=== PATIENT | male | born 1955 | race Caucasian/White ===

== ENCOUNTER 2024-12-06 09:35 | Observation (INO) | payer MEDICARE ==
[2024-12-06 10:06] LABS: Basophils # (A) 0.04 10*3/uL (0.00-0.10); Basophils % (A) 0.4 %; Eosinophils # (A) 0.01 10*3/uL (0.04-0.35); Eosinophils % (A) 0.1 %; HCT 42.8 % (39.6-50.0); HGB 14.2 g/dL (13.0-17.0); Lymphocytes # (A) 0.99 10*3/uL (0.90-5.00); Lymphocytes % (A) 8.7 %; MCHC 33.2 g/dL (32.0-37.0); MCV 87.5 fL (80.0-97.0); Mean Platelet Volume 8.5 fL (9.5-12.2); Monocytes # (A) 0.49 10*3/uL (0.20-1.00); Monocytes % (A) 4.3 %; Neutrophils # (A) 9.67 10*3/uL (1.80-7.70); Neutrophils % (A) 85.4 %; Platelet Count 298 10*3/uL (140-440); RBC 4.89 10*6/uL (4.40-5.60); RDW 13.2 % (11.5-14.5); WBC 11.33 10*3/uL (4.50-10.00)
[2024-12-06 10:23] LABS: ALT 31 U/L (4-49); AST 26 U/L (17-59); African American GFR (CKD) >90 (>60 ml/min/1.73 sqM); Albumin 4.7 g/dL (3.5-5.0); Alkaline Phosphatase 93 U/L (38-126); Anion Gap 10 mmol/L; Blood Urea Nitrogen 19 mg/dL (9-20); Calcium 8.8 mg/dL (8.4-10.2); Carbon Dioxide 28 mmol/L (22-30); Chloride 103 mmol/L (98-107); Glucose 294 mg/dL (74-99); Non-African American GFR(CKD) >90 (>60 ml/min/1.73 sqM); Potassium 4.4 mmol/L (3.5-5.1); Sodium 141 mmol/L (137-145); Total Bilirubin 0.7 mg/dL (0.2-1.3); Total Protein 7.7 g/dL (6.3-8.2)
--- NOTE | 2024-12-06 10:28 | XR ---
EXAMINATION TYPE: XR chest 1V portable DATE OF EXAM: 12/06/2024 10:15 AM COMPARISON: None. CLINICAL INDICATION: Male, 69 years old with history of cough, congestion, dyspnea, TECHNIQUE: XR chest 1V portable view(s) obtained. FINDINGS: The heart size is normal. The pulmonary vasculature is normal. Mild left lower lobe infiltrate is present. Correlate for atelectasis or pneumonia . IMPRESSION: 1. Mild left lower lobe infiltrate. Correlate for atelectasis or pneumonia. [facility], , 12/06/2024 10:26 AM
[2024-12-06 10:32] LABS: NT-Pro-B-Type Natriuretic Pept 379 pg/mL
[2024-12-06] MEDS: methylPREDNISolone SOD SUCCI 125 MG/2 ML VIAL IV STA (10:39)
[2024-12-06 10:40] LABS: INR 0.9 (<1.2); Partial Thromboplastin Time 24.5 sec (22.0-30.0); Prothrombin Time 10.4 sec (10.0-12.5)
[2024-12-06 10:47] LABS: Influenza A Not Detected (Not Detectd); Influenza B Not Detected (Not Detectd); RSV Not Detected (Not Detectd)
[2024-12-06] MEDS: hydrALAZINE HCL 20 MG/ML 1 ML VIAL IVP STA ×2 (11:03→12:37)
[2024-12-06] MEDS: MORPHINE SULFATE 4 MG/ML SYRINGE IVP STA (11:06)
[2024-12-06] MEDS: LACTATED RINGERS 1,000 ML IV ONE ×2 (11:06→12:32)
[2024-12-06] MEDS: LIDOCAINE 4% PATCH TOPICAL STA (11:09)
--- NOTE | 2024-12-06 11:14 | US ---
EXAMINATION TYPE: US venous doppler duplex LE BI DATE OF EXAM: 12/06/2024 11:02 AM COMPARISON: NONE CLINICAL INDICATION: Male, 69 years old with history of dyspnea. recent long distance travel. eval fo r PE; No hx of DVT. Patient does not take blood thinners. Recent [address] TECHNIQUE: The lower extremity deep venous system is examined utilizing real time linear array sonog juaquin with graded compression, color doppler sonography, and spectral doppler. SIDE PERFORMED: Bilateral FINDINGS: VESSELS IMAGED: Common Femoral Vein Deep Femoral Vein Greater Saphenous Vein * Femoral Vein Popliteal Vein Small Saphenous Vein * Proximal Calf Veins (* superficial vessels) Right Leg: No evidence of DVT. Peroneal veins were not visualized. Left Leg: No evidence of DVT. Peroneal veins were not visualized. IMPRESSION: No evidence for deep vein thrombosis. [facility], , 12/06/2024 11:11 AM
[2024-12-06] MEDS: IPRATROPIUM-ALBUTEROL 3 ML NEB INHALATION STA (11:38)
[2024-12-06] MEDS ORDERED: PNEUMONIA PROTOCOL UTILIZED 1 EACH MISC PO PRN (12:11)
--- NOTE | 2024-12-06 12:11 | CT ---
EXAMINATION TYPE: CT chest angio for PE DATE OF EXAM: 12/06/2024 11:39 AM COMPARISON: None CLINICAL INDICATION: Male, 69 years old with history of dyspnea. recent long distance travel. eval fo r PE; CHEST PAIN TECHNIQUE/CONTRAST: CTA scan of the thorax is performed with IV Contrast, patient injected with 80 mL of Isovue 370, MIP images are created and reviewed these are created on a separate workstation.. CT DLP: 491.7 mGycm, Automated exposure control for dose reduction was used. FINDINGS: Lungs/Pleura: No evidence of focal consolidation, pleural effusion or pneumothorax. 6 mm right lower lobe pulmonary nodule series 406 image 107. Regular lobe calcified granuloma. Moderate emphysema changes. Intralobular septal thickening.r Airway: Large airways are patent. Heart: Size within normal limits. No significant coronary artery calcifications. Vasculature: There is no evidence for a filling defect within the pulmonary vasculature to suggest ac [place] pulmonary embolism. The pulmonary artery is of normal size. Mediastinum: No gross evidence of adenopathy. Right pulmonary hilum lymph moderate atherosclerosis of the arterial vasculature. Node measuring up to 12 mm in short axis series 4 image 87. Musculoskeletal: Mild disc degeneration changes are present throughout the thoracolumbar spine second prosper to osteophyte formation and facet joint arthropathy. Soft Tissues/lymph nodes: Unremarkable. Lower neck: No significant findings. Upper Abdomen: No significant findings. IMPRESSION: 1. No evidence of pulmonary embolism. 2. 6 mm right lower lobe pulmonary nodule. Short-term follow-up in 6-12 months recommended. Follow up recommendations for incidental pulmonary nodules, if there are any, are per [employer] [employer] or [place] [employer]. https://radiopaedia.org/articles/avphkggvri-[email or web address]?lang=us [facility], , 12/06/2024 12:09 PM
[2024-12-06] MEDS: LACTATED RINGERS 1,000 ML IV SCH (12:33)
[2024-12-06] MEDS: AZITHROMYCIN 500 MG in SODIUM CHLORIDE 0.9% 250 ML IVPB STA (12:40)
--- NOTE | 2024-12-06 12:48 | ED ---
General Adult HPI - General Chief complaint: Shortness of Breath Stated complaint: ISHA Time Seen by Provider: 12/06/24 09:45 Source: patient, RN notes reviewed, old records reviewed Mode of arrival: ambulatory - History of Present Illness Initial comments: Patient is a 69-year-old male who presents emergency department complaining of shortness of breath. Has been ongoing for the last 2 weeks. Diagnosed with pneumonia last week and is currently taking Augmentin outpatient. Has also been taking steroids. Has a history of COPD on as needed oxygen at home. Has been needing to use it more often. Patient does have multiple recent long distance travels, recently returning from [place] but also was in [place] earlier this year. Needed BiPAP admission at that time. He denies any chest pain but does endorse cough productive of whitish to yellow sputum. States he did have a significantly swollen right lower extremity which has since improved. Had some mild left-sided swelling as well at that time. No history of CHF. Denies nausea vomiting diarrhea. Does endorse intermittent muscle spasming when his coughing gets bad. Presents for further evaluation at this time. Is not on blood thinners. - Related Data Home Medications Medication Instructions Recorded Confirmed Albuterol Nebulized [Ventolin 1.25 mg INHALATION RT-BID 12/06/24 12/06/24 Nebulized (Accuneb)] Amoxic-Pot Clav 875-125Mg 1 tab PO BID 12/06/24 12/06/24 [Augmentin 875-125] Budesonide/Formoterol Fumarate 2 puff INHALATION RT-BID 12/06/24 12/06/24 [Symbicort 160-4.5 Mcg Inhaler] Ipratropium Nebulized [Atrovent 0.5 mg INHALATION RT-BID 12/06/24 12/06/24 Nebulized 0.2 MG/ML] Levothyroxine Sodium [Synthroid] 175 mcg PO DAILY 12/06/24 12/06/24 predniSONE [Deltasone] 20 mg PO BID 12/06/24 12/06/24 Allergies Allergy/AdvReac Type Severity Reaction Status Date / Time No Known Allergies Allergy Verified 12/06/24 10:48 Review of Systems ROS Statement: Those systems with pertinent positive or pertinent negative responses have been documented in the HPI. Review of Systems: CONST: Denies fever EYES: Denies blurry vision ENT: Endorses nasal congestion C/V: Denies Chest pain RESP: Endorses shortness of breath, cough, congestion GI: Denies abdominal pain : Denies dysuria SKIN: Denies rash. MSK: Denies joint pain. NEURO: Denies headache ROS Other: All systems not noted in ROS Statement are negative. Past Medical History Past Medical History: Thyroid Disorder History of Any Multi-Drug Resistant Organisms: None Reported Past Surgical History: Orthopedic Surgery Past Psychological History: No Psychological Hx Reported Smoking Status: Never smoker Past Alcohol Use History: Rare Past Drug Use History: Marijuana General Exam - General Exam Comments Initial Comments: General: Appears in no acute distress. HEAD: Normal with no signs of head trauma. EYES: PERRLA, EOMI, conjunctiva normal, no discharge. Pupils are 3 mm and equal bilaterally. ENT: Hearing grossly intact, normal oropharynx. RESPIRATORY: Increased work of breathing with bilateral end expiratory wheezing. Mildly hypoxic, saturating anywhere from 87% on room air to 91%. Apparently this is typical as he does have as needed oxygen at home. C/V: Regular rate and rhythm. S1 and S2 auscultated, lower extremity edema, right worse than left., peripheral pulses 2+ and intact throughout ABD: Abd is soft, nontender, nondistended EXT: Normal range of motion, no obvious deformity SKIN: No rashes or lesions observed on exposed skin. NEURO: Alert and oriented x 4. Course Vital Signs 12/06/24 12/06/24 12/06/24 09:37 10:36 11:05 Temperature 97.7 F Pulse Rate 94 93 81 Respiratory 18 26 H 20 Rate Blood Pressure 205/88 187/94 173/94 O2 Sat by Pulse 87 L 95 91 L Oximetry 12/06/24 12/06/24 12/06/24 11:38 11:46 11:47 Temperature Pulse Rate 77 76 76 Respiratory Rate Blood Pressure O2 Sat by Pulse Oximetry 12/06/24 12/06/24 11:56 12:00 Temperature Pulse Rate 81 93 Respiratory 20 Rate Blood Pressure 193/103 O2 Sat by Pulse 94 L Oximetry Procedures - [place] Protocol (Time Out) Nurse: Ivan Melissa Medical Decision Making - Medical Decision Making Was pt. sent in by a medical professional or institution (, PA, BAR POINTER, urgent care, hospital, or intermediate...) When possible be specific @ -No Did you speak to anyone other than the patient for history (EMS, parent, family, police, friend...)? What history was obtained from this source @ -No Did you review nursing and triage notes (agree or disagree)? Why? @ -I reviewed and agree with nursing and triage notes Were old charts reviewed (outside hosp., previous admission, EMS record, old EKG, old radiological studies, urgent care reports/EKG's, intermediate records)? Report findings @ -No old charts were reviewed Differential Diagnosis (chest pain, altered mental status, abdominal pain women, abdominal pain men, vaginal bleeding, weakness, fever, dyspnea, syncope, headache, dizziness, GI bleed, back pain, seizure, CVA, palpatations, mental health, musculoskeletal)? @ -Differential Dyspnea: Coronary syndrome, arrhythmia, tamponade, asthma, COPD, pulmonary embolism, pneumonia, pneumothorax, pulmonary effusion, anaphylaxis, diabetic ketoacidosis, flailed chest, pulmonary contusion, diaphragmatic rupture, anemia, neuromuscular, this is not meant to be an all-inclusive list. EKG interpreted by me (3pts min.). @ -As above X-rays interpreted by me (1pt min.). @ -Chest x-ray shows left-sided pneumonia. CT interpreted by me (1pt min.). @ -CT angiogram chest abdomen pelvis negative for any obvious pulmonary embolism. Patient does have a 6 mm right lower lobe pulmonary nodule. U/S interpreted by me (1pt. min.). @ -Ultrasound negative for DVT What testing was considered but not performed or refused? (CT, X-rays, U/S, labs)? Why? @ -None What meds were considered but not given or refused? Why? @ -None Did you discuss the management of the patient with other professionals (rosalina haney i.e. , PA, BAR POINTER, lab, RT, psych nurse, social studies teacher, crop farmers, teacher, conservation officer, employment evaluator/case manager)? Give summary @ -Discussed with Dr. Guzman who accepted the admission. Was smoking cessation discussed for >3mins.? @ -No Was critical care preformed (if so, how long)? @ -Yes, 31 minutes Were there social determinants of health that impacted care today? How? (Homelessness, low income, unemployed, alcoholism, drug addiction, transportation, low edu. Level, literacy, decrease access to med. care, long-term, rehab)? @ -No Was there de-escalation of care discussed even if they declined (Discuss DNR or withdrawal of care, Hospice)? DNR status @ -No What co-morbidities impacted this encounter? (DM, HTN, Smoking, COPD, CAD, Cancer, CVA, ARF, Chemo, Hep., AIDS, mental health diagnosis, sleep apnea, morbid obesity)? @ -COPD, recent travel Was patient admitted / discharged? Hospital course, mention meds given and route, prescriptions, significant lab abnormalities, going to OR and other pertinent info. @ -Patient presents emergency department with multiple complaints. Seems to be likely URI symptoms with COPD exacerbation but cannot rule out other etiology as he did have the right lower extremity swelling and recent TRAVEL. We will rule out PE and DVT as well. Patient will be given IV steroids, treatments, and we will obtain general workup. He was in agreement this plan. He is intermittently on oxygen at home but is currently requiring 3 to 4 L. He is hypertensive but has some chest wall discomfort and is given some morphine. Patient had failed outpatient management as he has been on antibiotics and steroids for multiple days. EKG shows no signs of acute ischemia. Chest x-ray shows left-sided pneumonia. CT angiogram of the chest negative for PE but does show a right sided pulmonary nodule. Ultrasound DVT negative for DVT. Labs remarkable for mild leukocytosis of 11. Lactic acid 2.8 likely secondary to increased work of breathing and dehydration. Troponin is undetectable. BNP within normal limits. D-dimer within normal limits. At this time, I updated the patient. Breathing has improved. He he became a little more hypertensive again and will be given IV hydralazine at this time. He was in agreement this plan. He will be admitted on IV antibiotics. Started on 2 L fluid bolus with maintenance fluids. He was in agreement this plan. Pulmonology consulted. I updated him on the findings of the pulmonary nodule and he expresses understanding that he needs follow-up. I spoke with the admitting provider, Dr. Meneses who accepted the admission. Undiagnosed new problem with uncertain prognosis? @ -No Drug Therapy requiring intensive monitoring for toxicity (Heparin, Nitro, Insulin, Cardizem)? @ -No Were any procedures done? @ -No Diagnosis/symptom? @ -COPD, pneumonia, acute on chronic hypoxic respiratory failure, pulmonary nodule Acute, or Chronic, or Acute on Chronic? @ -Acute Uncomplicated (without systemic symptoms) or Complicated (systemic symptoms)? @ -Complicated Side effects of treatment? @ -No Exacerbation, Progression, or Severe Exacerbation? @ -No Poses a threat to life or bodily function? How? (Chest pain, USA, OR, pneumonia, PE, COPD, DKA, ARF, appy, cholecystitis, CVA, Diverticulitis, Homicidal, Castillo icidal, threat to staff... and all critical care pts) @ -Yes - Lab Data Result diagrams: 12/06/24 09:55 12/06/24 09:55 Lab Results 12/06/24 12/06/24 12/06/24 Range/Units 09:55 09:55 09:55 WBC 11.33 H (4.50-10.00) 10*3/uL RBC 4.89 (4.40-5.60) 10*6/uL Hgb 14.2 (13.0-17.0) g/dL Hct 42.8 (39.6-50.0) % MCV 87.5 (80.0-97.0) fL MCH 29.0 (27.0-32.0) pg MCHC 33.2 (32.0-37.0) g/dL Plt Count 298 (140-440) 10*3/uL MPV 8.5 L (9.5-12.2) fL Immature Gran % (Auto) 1.1 % Neutrophils % 85.4 % Lymphocytes % 8.7 % Monocytes % 4.3 % Eosinophils % 0.1 % Basophils % 0.4 % Immature Gran # 0.13 H (0.00-0.04) 10*3/uL Neutrophils # 9.67 H (1.80-7.70) 10*3/uL Lymphocytes # 0.99 (0.90-5.00) 10*3/uL Monocytes # 0.49 (0.20-1.00) 10*3/uL Eosinophils # 0.01 L (0.04-0.35) 10*3/uL Basophils # 0.04 (0.00-0.10) 10*3/uL PT 10.4 (10.0-12.5) sec INR 0.9 (<1.2) APTT 24.5 (22.0-30.0) sec D-Dimer 0.34 (<0.60) mg/L FEU Sodium 141 (137-145) mmol/L Potassium 4.4 (3.5-5.1) mmol/L Chloride 103 (98-107) mmol/L Carbon Dioxide 28 (22-30) mmol/L Anion Gap 10 mmol/L BUN 19 (9-20) mg/dL Creatinine 0.67 (0.66-1.25) mg/dL Est GFR (CKD-EPI)AfAm >90 (>60 ml/min/1.73 sqM) Est GFR (CKD-EPI)NonAf >90 (>60 ml/min/1.73 sqM) Glucose 294 H (74-99) mg/dL Lactic Ac Sepsis Rflx Plasma Lactic Acid Bry (0.7-2.0) mmol/L Calcium 8.8 (8.4-10.2) mg/dL Magnesium 2.0 (1.6-2.3) mg/dL Total Bilirubin 0.7 (0.2-1.3) mg/dL AST 26 (17-59) U/L ALT 31 (4-49) U/L Alkaline Phosphatase 93 (38-126) U/L Troponin I (0.000-0.034) ng/mL NT-Pro-B Natriuret Pep 379 pg/mL Total Protein 7.7 (6.3-8.2) g/dL Albumin 4.7 (3.5-5.0) g/dL Influenza Type A (PCR) (Not Detectd) Influenza Type B (PCR) (Not Detectd) RSV (PCR) (Not Detectd) SARS-CoV-2 (PCR) (Not Detectd) 12/06/24 12/06/24 12/06/24 Range/Units 09:55 09:55 09:55 WBC (4.50-10.00) 10*3/uL RBC (4.40-5.60) 10*6/uL Hgb (13.0-17.0) g/dL Hct (39.6-50.0) % MCV (80.0-97.0) fL MCH (27.0-32.0) pg MCHC (32.0-37.0) g/dL Plt Count (140-440) 10*3/uL MPV (9.5-12.2) fL Immature Gran % (Auto) % Neutrophils % % Lymphocytes % % Monocytes % % Eosinophils % % Basophils % % Immature Gran # (0.00-0.04) 10*3/uL Neutrophils # (1.80-7.70) 10*3/uL Lymphocytes # (0.90-5.00) 10*3/uL Monocytes # (0.20-1.00) 10*3/uL Eosinophils # (0.04-0.35) 10*3/uL Basophils # (0.00-0.10) 10*3/uL PT (10.0-12.5) sec INR (<1.2) APTT (22.0-30.0) sec D-Dimer (<0.60) mg/L FEU Sodium (137-145) mmol/L Potassium (3.5-5.1) mmol/L Chloride (98-107) mmol/L Carbon Dioxide (22-30) mmol/L Anion Gap mmol/L BUN (9-20) mg/dL Creatinine (0.66-1.25) mg/dL Est GFR (CKD-EPI)AfAm (>60 ml/min/1.73 sqM) Est GFR (CKD-EPI)NonAf (>60 ml/min/1.73 sqM) Glucose (74-99) mg/dL Lactic Ac Sepsis Rflx Plasma Lactic Acid Bry 2.8 H* (0.7-2.0) mmol/L Calcium (8.4-10.2) mg/dL Magnesium (1.6-2.3) mg/dL Total Bilirubin (0.2-1.3) mg/dL AST (17-59) U/L ALT (4-49) U/L Alkaline Phosphatase (38-126) U/L Troponin I <0.012 (0.000-0.034) ng/mL NT-Pro-B Natriuret Pep pg/mL Total Protein (6.3-8.2) g/dL Albumin (3.5-5.0) g/dL Influenza Type A (PCR) Not Detected (Not Detectd) Influenza Type B (PCR) Not Detected (Not Detectd) RSV (PCR) Not Detected (Not Detectd) SARS-CoV-2 (PCR) Not Detected (Not Detectd) 12/06/24 Range/Units 10:25 WBC (4.50-10.00) 10*3/uL RBC (4.40-5.60) 10*6/uL Hgb (13.0-17.0) g/dL Hct (39.6-50.0) % MCV (80.0-97.0) fL MCH (27.0-32.0) pg MCHC (32.0-37.0) g/dL Plt Count (140-440) 10*3/uL MPV (9.5-12.2) fL Immature Gran % (Auto) % Neutrophils % % Lymphocytes % % Monocytes % % Eosinophils % % Basophils % % Immature Gran # (0.00-0.04) 10*3/uL Neutrophils # (1.80-7.70) 10*3/uL Lymphocytes # (0.90-5.00) 10*3/uL Monocytes # (0.20-1.00) 10*3/uL Eosinophils # (0.04-0.35) 10*3/uL Basophils # (0.00-0.10) 10*3/uL PT (10.0-12.5) sec INR (<1.2) APTT (22.0-30.0) sec D-Dimer (<0.60) mg/L FEU Sodium (137-145) mmol/L Potassium (3.5-5.1) mmol/L Chloride (98-107) mmol/L Carbon Dioxide (22-30) mmol/L Anion Gap mmol/L BUN (9-20) mg/dL Creatinine (0.66-1.25) mg/dL Est GFR (CKD-EPI)AfAm (>60 ml/min/1.73 sqM) Est GFR (CKD-EPI)NonAf (>60 ml/min/1.73 sqM) Glucose (74-99) mg/dL Lactic Ac Sepsis Rflx Y Plasma Lactic Acid Bry (0.7-2.0) mmol/L Calcium (8.4-10.2) mg/dL Magnesium (1.6-2.3) mg/dL Total Bilirubin (0.2-1.3) mg/dL AST (17-59) U/L ALT (4-49) U/L Alkaline Phosphatase (38-126) U/L Troponin I (0.000-0.034) ng/mL NT-Pro-B Natriuret Pep pg/mL Total Protein (6.3-8.2) g/dL Albumin (3.5-5.0) g/dL Influenza Type A (PCR) (Not Detectd) Influenza Type B (PCR) (Not Detectd) RSV (PCR) (Not Detectd) SARS-CoV-2 (PCR) (Not Detectd) - EKG Data -: EKG Interpreted by Me EKG Comments: 12-lead Electrocardiogram Interpretation Note EKG was reviewed and interpreted by myself. 12-lead ECG performed at 0954 is interpreted by me as revealing normal sinus rhythm at a rate of 85 beats per minute. Lewis is normal. SD interval is 141 ms, QRS durations 102 ms, QTc is 426 ms.. There were no ST or T wave abnormalities to suggest myocardial ischemia or injury. R wave progression across the precordium was satisfactory. By my interpretation this EKG is non-diagnostic for acute ischemia. Critical Care Time Critical Care Time: Yes Total Critical Care Time: 31 Disposition Clinical Impression: COPD (chronic obstructive pulmonary disease), Acute on chronic hypoxic respiratory failure, Pneumonia Disposition: ADMITTED IP TO THIS HOSP Condition: Stable Referrals: None,Stated [Primary Care Provider] - 1-2 days Time of Disposition: 12:45
[2024-12-06] MEDS ORDERED: ONDANSETRON 4 MG/2 ML VIAL IVP PRN (13:01)
[2024-12-06] MEDS ORDERED: ACETAMINOPHEN TAB 325 MG TAB PO PRN (13:01)
[2024-12-06] MEDS ORDERED: IPRATROPIUM-ALBUTEROL 3 ML NEB INHALATION PRN (13:01)
[2024-12-06] MEDS ORDERED: NALOXONE 0.4 MG/ML 1 ML VIAL IV PRN (13:01)
[2024-12-06 13:51] LABS: Appearance,Urine Clear (Clear); Bilirubin,Urine Negative (Negative); Blood,Urine Negative (Negative); Color,Urine Light Yellow; Glucose,Urine (UA) 2+ (Negative); Ketones,Urine Negative (Negative); Leukocyte Esterase,Urine Negative (Negative); Mucus,Urine Rare /hpf; Nitrite,Urine Negative (Negative); PH, Urine 6.5 (5.0-8.0); Protein,Urine 1+ (Negative); RBC,Urine <1 /hpf (0-5); Specific Gravity,Urine 1.038 (1.001-1.035); Urobilinogen,Urine <2.0 mg/dL (<2.0); WBC,Urine <1 /hpf (0-5)
[2024-12-06] MEDS ORDERED: DEXTROSE 50% SYRINGE 50 ML IVP PRN ×2 (14:08)
--- NOTE | 2024-12-06 14:21 | P.HPIM ---
History of Present Illness H&P Date: 12/06/24 History of Presenting Illness: Patient is a very pleasant 69-year-old male with a past medical history of hypothyroidism and COPD. He reports previously on home oxygen after RSV infection in June but reports was since weaned off and only uses on an as- needed basis. He states he has been battling an upper respiratory infection since and that this has continued to worsen over the past 2 weeks. He reports being seen by his PCP and started on Augmentin and oral steroids with no improvement, patient reports occasional productive cough of white to yellow sputum production, but reports cough is mostly nonproductive. Patient denies fevers, chills, diaphoresis, headache, lightheadedness, dizziness, chest pain, palpitations, nausea, vomiting, or experiencing any numbness/tingling/weakness in his extremities. He does report lower extremity edema and states it has been worse because he has not been able to elevate his legs at night to sleep because he cannot breathe. Patient does report extensive travel stating he primarily lives on a boat and travels back and forth from [place], [facility], and [place]. Upon arrival to our facility, patient underwent evaluation in the emergency department. Vital signs upon arrival show blood pressure 205/88, heart rate 94, respiratory rate 18, temp 97.7 F, and SpO2 of 87% on room air. EKG completed showing normal sinus rhythm at [address]/T wave abnormalities. Bilateral lower extremity Dopplers n egative for DVT. Chest x-ray showing mild left lower lobe infiltrate concerning for pneumonia. CTA chest completed negative for pulmonary emboli showing a 6 mm right lower lobe pulmonary nodule. Labs completed and reviewed. CBC showing leukocytosis with WBC count of 11.33, immature granulocytes of 0.13, neutrophils of 9.67. BMP showing hyperglycemia with blood glucose of 294. Lactic acid sana vated at 2.8. Calcium 8.8. Magnesium 2.0. Liver profile unremarkable. Troponin was negative at less than 0.012 and proBNP 379. Patient was given a one-time dose of hydralazine by ED physician and blood pressure improving to 187/94 but again increasing to 193/103. Patient admitted under our services with consultation to pulmonology. Review of systems: Pertinent positives and negatives as discussed in HPI, a complete review of systems was performed and all other systems are negative. Physical exam: Vital signs reviewed and stable. General: Nontoxic, no distress and appears stated age. Derm: Skin warm and dry, normal coloration for ethnicity. Head: Atraumatic, normocephalic and symmetric. Eyes: EOM's intact, no lid lag, and anicteric sclera Mouth: no lip lesions, mucus membranes moist Cardiovascular: regular rate and rhythm with normal S1S2, no murmur, positive posterior tibial pulses bilaterally, and cap refill < 2 seconds. Lungs: Respirations even, regular, and unlabored on 2 L O2 via nasal cannula. Lungs diminished with diffuse rhonchi very soft expiratory wheeze. No accessory muscle usage. Abdominal: soft, nontender to palpation, no guarding, no appreciable orga nomegaly Ext: ROM intact. No gross muscle atrophy, Bilateral lower extremity edema, right worse than left. Neuro: Speech clear, face symmetrical and CN II-XII grossly intact with no noted focal neuro deficits Psych: Alert and oriented to person, place, time, and situation. Appropriate and pleasant affect. Assessment and Plan of Care: Community-acquired pneumonia COPD with acute exacerbation Acute respiratory failure with hypoxia, secondary to above Lactic acidosis, secondary to above -Consult to Pulmonology, appreciate recommendations -Oxygenation to be administered and titrated as needed to maintain SPO2 equal to or greater than 92% -Telemetry monitoring. -Monitor pulse-oximetry -Duonebs scheduled every 4 hours and as needed for SOB and/or wheezing -Incentive Spirometry -Steroids: Solu-Medrol 40 mg IV every 8 hours -Antibiotics: Rocephin 2 g daily and Zithromax 500 mg daily. - Echocardiogram to be completed secondary to bilateral lower extremity edema and orthopnea. Hypertensive urgency - Upon arrival to our facility blood pressure 205/88 with heart rate of 94, patient was given a one-time dose of hydralazine by ED physician and blood pressure improving to 187/94 but again increasing to 193/103. - Echocardiogram to be completed. Monitor vital signs and patient to be started on losartan/hydrochlorothiazide 50/12.5 mg tablets daily. Pulmonary nodule, incidental finding on CT -CTA chest revealing 6 mm right lower lobe pulmonary nodule recommend close outpatient surveillance with repeat CT in 6 months. Hyperglycemia -Possibly secondary to recent steroid use, patient denies history of diabetes. Blood glucose currently 294. Will obtain hemoglobin A1c and place patient on glycemic protocol with NovoLog sliding scale at this time. Hypothyroidism Continue daily medication regimen with levothyroxine 176 mcg daily. Data and imaging reviewed: As stated above in HPI The patient is admitted with an anticipated greater than 2 midnight stay for evaluation of acute respiratory failure with hypoxia secondary to COPD exacerbation and community-acquired pneumonia. CODE STATUS: Full code DVT prophylaxis: Lovenox Anticipated discharge date: Pending clinical course Anticipated discharge place: Home Patient was seen independently by Nurse Practitioner. This document was prepared using PagoPago dictation software. Please allow for errors in preschool assistant while rare they do occur. John Pickering NP rendered care for this patient independently, reviewed the findi ngs and plan as documented in the note above and agree with plan. I did not physically speak with or examine the patient on this date. Past Medical History Past Medical History: Thyroid Disorder History of Any Multi-Drug Resistant Organisms: None Reported Past Surgical History: Orthopedic Surgery Past Psychological History: No Psychological Hx Reported Smoking Status: Never smoker Past Alcohol Use History: Rare Past Drug Use History: Marijuana Medications and Allergies Home Medications Medication Instructions Recorded Confirmed Type Albuterol Nebulized [Ventolin 1.25 mg INHALATION RT-BID 12/06/24 12/06/24 History Nebulized (Accuneb)] Amoxic-Pot Clav 875-125Mg 1 tab PO BID 12/06/24 12/06/24 History [Augmentin 875-125] Budesonide/Formoterol Fumarate 2 puff INHALATION RT-BID 12/06/24 12/06/24 History [Symbicort 160-4.5 Mcg Inhaler] Ipratropium Nebulized [Atrovent 0.5 mg INHALATION RT-BID 12/06/24 12/06/24 History Nebulized 0.2 MG/ML] Levothyroxine Sodium [Synthroid] 175 mcg PO DAILY 12/06/24 12/06/24 History predniSONE [Deltasone] 20 mg PO BID 12/06/24 12/06/24 History Allergies Allergy/AdvReac Type Severity Reaction Status Date / Time No Known Allergies Allergy Verified 12/06/24 10:48 Physical Exam Vitals: Vital Signs Temp Pulse Resp BP Pulse Ox 12/06/24 12:00 93 20 193/103 94 L 12/06/24 11:56 81 12/06/24 11:47 76 12/06/24 11:46 76 12/06/24 11:38 77 12/06/24 11:05 81 20 173/94 91 L 12/06/24 10:36 93 26 H 187/94 95 12/06/24 09:37 97.7 F 94 18 205/88 87 L Intake and Output 12/05/24 12/06/24 12/06/24 22:59 06:59 14:59 Other: Weight 98.43 kg Results CBC & Chem 7: 12/06/24 09:55 12/06/24 09:55 Labs: Abnormal Lab Results - Last 24 Hours (Table) 12/06/24 12/06/24 12/06/24 Range/Units 09:55 09:55 09:55 WBC 11.33 H (4.50-10.00) 10*3/uL MPV 8.5 L (9.5-12.2) fL Immature Gran # 0.13 H (0.00-0.04) 10*3/uL Neutrophils # 9.67 H (1.80-7.70) 10*3/uL Eosinophils # 0.01 L (0.04-0.35) 10*3/uL Glucose 294 H (74-99) mg/dL Plasma Lactic Acid Bry 2.8 H* (0.7-2.0) mmol/L
--- NOTE | 2024-12-06 15:15 | P.CNPUL ---
History of Present Illness Consult date: 12/06/24 Requesting physician: John Pickering Reason for consult: dyspnea, COPD Chief complaint: Shortness of breath, cough, congestion History of present illness: This is a pleasant 69-year-old male patient with a known history of hypothyroidism. He has a 2-week history of increasing shortness of breath cough and congestion. He was treated with Augmentin and steroids in the outpatient setting without much improvement. He did have RSV in June 2024. He does have a history of chronic obstructive pulmonary disease with chronic and ongoing tobacco dependence and is on home oxygen as needed. He is on Symbicort and albuterol. He presented to the emergency room today. O2 saturation 87% on room air. Currently in the 90s on 2 L/min per nasal cannula. Chest x-ray reveals some mild left lower lobe infiltrate. Atelectasis. Doppler of the lower extremities revealed no evidence of DVT. CT angiogram revealed no evidence of pulmonary embolism. There was an incidental finding of a 6 mm right lower lobe pulmonary nodule. Lung osman were clear. White count 11.3. Hemoglobin 14.2. Platelets 298. D-dimer 0.34. Sodium 141. Potassium 4.4. Bicarb 28. BUN 19. Creatinine 0.67. Glucose 294. Troponin negative x 1. proBNP 379. Urinalysis clean. Viral screen negative for influenza A/B, RSV and COVID. He is seen today in consultation on the selective care unit. He is currently sitting up in a chair. Awake and alert in no acute distress. Maintaining good O2 saturations in the 90s on 2 L/min per nasal cannula. He does have a loose congested cough. No fever or chills. No hemoptysis. Review of Systems REVIEW OF SYSTEMS: CONSTITUTIONAL: Denies any recent significant weight loss or weight gain. EYES: Denies change in vision. EARS, NOSE, MOUTH, THROAT: Denies headaches, denies sore throat. CARDIOVASCULAR: Denies chest pain, palpitations or syncopal episodes. RESPIRATORY: Positive for shortness of breath, cough, congestion no hemoptysis. GASTROINTESTINAL: Denies change in appetite, denies abdominal pain GENITOURINARY: Denies hematuria, denies infections. MUSKULOSKELETAL: Denies pain, denies swelling. INTEGUMENTARY: Denies rash, denies eczema. NEUROLOGICAL: Denies recent memory loss, no recent seizure activity. PSYCHIATRIC: Denies anxiety, denies depression. HEMATOLOGIC/LYMPHATIC: Denies anemia, denies enlarged lymph nodes. Past Medical History Past Medical History: Thyroid Disorder History of Any Multi-Drug Resistant Organisms: None Reported Past Surgical History: Orthopedic Surgery Past Psychological History: No Psychological Hx Reported Smoking Status: Never smoker Past Alcohol Use History: Rare Past Drug Use History: Marijuana Medications and Allergies Home Medications Medication Instructions Recorded Confirmed Type Albuterol Nebulized [Ventolin 1.25 mg INHALATION RT-BID 12/06/24 12/06/24 History Nebulized (Accuneb)] Amoxic-Pot Clav 875-125Mg 1 tab PO BID 12/06/24 12/06/24 History [Augmentin 875-125] Budesonide/Formoterol Fumarate 2 puff INHALATION RT-BID 12/06/24 12/06/24 History [Symbicort 160-4.5 Mcg Inhaler] Ipratropium Nebulized [Atrovent 0.5 mg INHALATION RT-BID 12/06/24 12/06/24 History Nebulized 0.2 MG/ML] Levothyroxine Sodium [Synthroid] 175 mcg PO DAILY 12/06/24 12/06/24 History predniSONE [Deltasone] 20 mg PO BID 12/06/24 12/06/24 History Allergies Allergy/AdvReac Type Severity Reaction Status Date / Time No Known Allergies Allergy Verified 12/06/24 10:48 Physical Exam Vitals: Vital Signs Temp Pulse Resp BP Pulse Ox 12/06/24 13:19 94 20 172/49 94 L 12/06/24 12:00 93 20 193/103 94 L 12/06/24 11:56 81 12/06/24 11:47 76 12/06/24 11:46 76 12/06/24 11:38 77 12/06/24 11:05 81 20 173/94 91 L 12/06/24 10:36 93 26 H 187/94 95 12/06/24 09:37 97.7 F 94 18 205/88 87 L Intake and Output 12/06/24 12/06/24 12/06/24 06:59 14:59 22:59 Other: Weight 98.43 kg GENERAL EXAM: Alert, oriented 69-year-old male, up in a chair, on 2 L nasal c annula, fairly comfortable in no apparent distress. HEAD: Normocephalic. EYES: Normal reaction of pupils, equal size. NOSE: Clear with pink turbinates. THROAT: No erythema or exudates. NECK: No masses, no JVD. CHEST: No chest wall deformity. LUNGS: Equal air entry with bilateral scattered rhonchi. CVS: S1 and S2 normal with no audible murmur, regular rhythm. ABDOMEN: No hepatosplenomegaly, normal bowel sounds, no guarding or rigidity. SPINE: No scoliosis or deformity SKIN: No rashes CENTRAL NERVOUS SYSTEM: No focal deficits, tone is normal in all 4 extremities. EXTREMITIES: There is no peripheral edema. No clubbing, no cyanosis. Peripheral pulses are intact. Results - Laboratory Findings CBC and BMP: 12/06/24 09:55 12/06/24 09:55 PT/INR, D-dimer PT 10.4 sec (10.0-12.5) 12/06/24 09:55 INR 0.9 (<1.2) 12/06/24 09:55 D-Dimer 0.34 mg/L FEU (<0.60) 12/06/24 09:55 Abnormal lab findings: Abnormal Labs 12/06/24 12/06/24 12/06/24 09:55 09:55 09:55 WBC 11.33 H MPV 8.5 L Immature Gran # 0.13 H Neutrophils # 9.67 H Eosinophils # 0.01 L Glucose 294 H Plasma Lactic Acid Bry 2.8 H* Ur Specific Nova Urine Protein Urine Glucose (UA) Urine Mucus 12/06/24 12/06/24 12:35 13:10 WBC MPV Immature Gran # Neutrophils # Eosinophils # Glucose Plasma Lactic Acid Bry 2.9 H* Ur Specific Nova 1.038 H Urine Protein 1+ H Urine Glucose (UA) 2+ H Urine Mucus Rare H - Diagnostic Findings Chest x-ray: image reviewed CT scan - chest: image reviewed Assessment and Plan Assessment: Acute on chronic hypoxic respiratory failure secondary to an acute exacerbation of chronic obstructive pulmonary disease complicated by tracheobronchitis. Viral screen negative for influenza A/B, RSV and COVID. CT angiogram ruled out pulmonary embolism. Lung osman are clear. Right lower lobe pulmonary nodule measuring 6 mm. To have follow-up CT in 6 to 12 months Chronic and ongoing tobacco dependence History of RSV in June 2024 Hypothyroidism Marijuana use Plan: The patient was seen and evaluated Imaging, labs and medications reviewed Initiate DuoNeb and elations Initiate Symbicort Initiate Solu-Medrol Lovenox for DVT prophylaxis Continue ceftriaxone for now Obtain a procalcitonin Educated regarding smoking cessation NicoDerm patch will be offered Resume home medications Informed of pulmonary nodule Follow-up CT scan of the chest in 6 to 12 months We will continue to follow and make further recommendations based on his clinical status I have personally seen and examined the patient, performed the documentation and the assessment and plan as written. Number of minutes spent on the visit: 20 Dictation was produced using H5 dictation software. Please excuse any grammatical, word or spelling errors. Time with Patient: Greater than 30
[2024-12-06] MEDS: methylPREDNISolone SOD SUCCI 40 MG/ML 1 ML VIAL IV SCH (16:11)
[2024-12-06] MEDS: LOSARTAN-HCTZ 50-12.5 MG 1 EACH TAB PO SCH (16:11)
[2024-12-06] MEDS: IPRATROPIUM-ALBUTEROL 3 ML NEB INHALATION SCH (16:44)
[2024-12-06 16:47] LABS: Glucose,Whole Blood 284 mg/dL (70-110)
[2024-12-06] MEDS: INSULIN LISPRO (HumaLOG) 100 UNIT/ML 10 mL VL SQ SCH (16:51)
[2024-12-06 19:49] VITALS: RESP 18
[2024-12-06 20:09] LABS: Glucose,Whole Blood 299 mg/dL (70-110)
[2024-12-06] MEDS: hydrALAZINE HCL 20 MG/ML 1 ML VIAL IVP PRN (20:52)
[2024-12-06] MEDS: SYMBICORT 160-4.5 MCG INHALER INHALATION SCH (21:38)
[2024-12-07 03:24] LABS: Basophils # (A) 0.02 10*3/uL (0.00-0.10); Basophils % (A) 0.1 %; HCT 44.2 % (39.6-50.0); HGB 14.5 g/dL (13.0-17.0); Lymphocytes # (A) 0.94 10*3/uL (0.90-5.00); Lymphocytes % (A) 6.5 %; MCH 29.2 pg (27.0-32.0); MCHC 32.8 g/dL (32.0-37.0); MCV 89.1 fL (80.0-97.0); Mean Platelet Volume 8.7 fL (9.5-12.2); Monocytes # (A) 0.71 10*3/uL (0.20-1.00); Monocytes % (A) 4.9 %; Neutrophils # (A) 12.61 10*3/uL (1.80-7.70); Neutrophils % (A) 86.8 %; Platelet Count 328 10*3/uL (140-440); RBC 4.96 10*6/uL (4.40-5.60); RDW 12.9 % (11.5-14.5); WBC 14.53 10*3/uL (4.50-10.00)
[2024-12-07 03:46] LABS: ALT 29 U/L (4-49); AST 21 U/L (17-59); African American GFR (CKD) >90 (>60 ml/min/1.73 sqM); Albumin 4.5 g/dL (3.5-5.0); Alkaline Phosphatase 79 U/L (38-126); Anion Gap 10 mmol/L; Blood Urea Nitrogen 15 mg/dL (9-20); Calcium 10.4 mg/dL (8.4-10.2); Carbon Dioxide 32 mmol/L (22-30); Chloride 98 mmol/L (98-107); Glucose 216 mg/dL (74-99); Non-African American GFR(CKD) >90 (>60 ml/min/1.73 sqM); Potassium 4.7 mmol/L (3.5-5.1); Sodium 140 mmol/L (137-145); Total Bilirubin 0.4 mg/dL (0.2-1.3); Total Protein 7.6 g/dL (6.3-8.2)
[2024-12-07 06:08] LABS: Glucose,Whole Blood 192 mg/dL (70-110)
[2024-12-07] MEDS: LEVOTHYROXINE 88 MCG TAB PO SCH (06:37)
--- NOTE | 2024-12-07 08:36 | XR ---
EXAMINATION TYPE: XR chest 1V portable DATE OF EXAM: 12/07/2024 6:45 AM COMPARISON: Chest radiographs from 12/06/2024. CLINICAL INDICATION: Male, 69 years old with history of pneumonia; [facility] TECHNIQUE: XR chest 1V portable Frontal view of the chest. FINDINGS: Lungs/Pleura: Scattered interstitial opacities There is no evidence of pleural effusion, focal consol idation, or pneumothorax. Pulmonary vascularity: Unremarkable. Heart/mediastinum: Cardiomediastinal silhouette is unremarkable. Musculoskeletal: No acute osseous pathology. Other findings: None IMPRESSION: Mild pulmonary edema versus atypical pneumonia [facility], , 12/07/2024 8:34 AM
[2024-12-07] MEDS: ENOXAPARIN 40 MG/0.4 ML SYRINGE SQ SCH (08:53)
[2024-12-07] MEDS: HYDROcodone/APAP 5-325MG 1 EACH TAB PO PRN (09:42)
[2024-12-07 11:37] LABS: Glucose,Whole Blood 147 mg/dL (70-110)
--- NOTE | 2024-12-07 12:04 | P.PN ---
Subjective Progress Note Date: 12/07/24 Hospital Course: Patient is a very pleasant 69-year-old male with a past medical history of hypothyroidism and COPD. He reports previously on home oxygen after RSV infection in June but reports was since weaned off and only uses on an as- needed basis. He states he has been battling an upper respiratory infection since and that this has continued to worsen over the past 2 weeks. He reports being seen by his PCP and started on Augmentin and oral steroids with no improvement, patient reports occasional productive cough of white to yellow sputum production, but reports cough is mostly nonproductive. Patient denies fevers, chills, diaphoresis, headache, lightheadedness, diz ziness, chest pain, palpitations, nausea, vomiting, or experiencing any numbness/tingling/weakness in his extremities. He does report lower extremity edema and states it has been worse because he has not been able to elevate his legs at night to sleep because he cannot breathe. Patient does report extensive travel stating he primarily lives on a boat and travels back and forth from [place], [facility], and [place]. Upon arrival to our facility, patient underwent evaluation in the emergency department. Vital signs upon arrival show blood pressure 205/88, heart rate 94, respiratory rate 18, temp 97.7 F, and SpO2 of 87% on room air. EKG completed showing normal sinus rhythm at [address]/T wave abnormalities. Bilateral lower extremity Dopplers negative for DVT. Chest x-ray showing mild left lower lobe infiltrate concerning for pneumonia. CTA chest completed negative for pulmonary emboli showing a 6 mm right lower lobe pulmonary nodule. Labs completed and reviewed. CBC showing leukocytosis with WBC count of 11.33, immature granulocytes of 0.13, neutrophils of 9.67. BMP showing hyperglycemia with blood glucose of 294. Lactic acid elevated at 2.8. Calcium 8.8. Magnesium 2.0. Liver profile unremarkable. Troponin was negative at less than 0.012 and proBNP 379. Patient was given a one-time dose of hydralazine by ED physician and blood pressure impr oving to 187/94 but again increasing to 193/103. Patient admitted under our services with consultation to pulmonology. Physical exam: Vital signs reviewed and stable. General: Nontoxic, no distress and appears stated age. Derm: Skin warm and dry, normal coloration for ethnicity. Head: Atraumatic, normocephalic and symmetric. Eyes: EOM's intact, no lid lag, and anicteric sclera Mouth: no lip lesions, mucus membranes moist Cardiovascular: regular rate and rhythm with normal S1S2, no murmur, positive posterior tibial pulses bilaterally, and cap refill < 2 seconds. Lungs: Respirations even, regular, and unlabored on 3 L O2 via nasal cannula. Lungs diminished with very soft expiratory wheeze. No rhonchi. rales, or crackles. No accessory muscle usage. Abdominal: soft, nontender to palpation, no guarding, no appreciable organomegaly Ext: ROM intact. No gross muscle atrophy, Bilateral lower extremity edema, right worse than left. Neuro: Speech clear, face symmetrical and CN II-XII grossly intact with no noted focal neuro deficits Psych: Alert and oriented to person, place, time, and situation. Appropriate and pleasant affect. Assessment and Plan of Care: Community-acquired pneumonia COPD with acute exacerbation Acute respiratory failure with hypoxia, secondary to above Lactic acidosis, secondary to above -Consult to Pulmonology, appreciate recommendations -Oxygenation to be administered and titrated as needed to maintain SPO2 equal to or greater than 92% -Telemetry monitoring. -Monitor pulse-oximetry -Duonebs scheduled every 4 hours and as needed for SOB and/or wheezing -Incentive Spirometry -Steroids: Solu-Medrol 40 mg IV every 8 hours -Antibiotics: Rocephin 2 g daily and Zithromax 500 mg daily. -Echocardiogram to be completed secondary to bilateral lower extremity edema and orthopnea. Hypertensive urgency, Resolved. - Upon arrival to our facility blood pressure 205/88 with heart rate of 94, patient was given a one-time dose of hydralazine by ED physician and blood pressure improving to 187/94 but again increasing to 193/103. - Echocardiogram to be completed. Monitor vital signs and patient to be started on losartan/hydrochlorothiazide 50/12.5 mg tablets daily. Pulmonary nodule, incidental finding on CT -CTA chest revealing 6 mm right lower lobe pulmonary nodule recommend close outpatient surveillance with repeat CT in 6 months. Hyperglycemia, New diagnosis of Type II diabetes mellitus. -Blood glucose 216. Hgb A1c 6.8%. Continue glycemic protocol with NovoLog sliding scale at this time. Will plan for discharge home on Metformin. Hypercalcemia -Continue IV fluid hydration and monitor for improvement. Hypothyroidism Continue daily medication regimen with levothyroxine 176 mcg daily. Data and imaging reviewed: CBC showing leukocytosis with WBC 14.53. BMP showing hypercarbia with bicarb of 32. Blood glucose 216. Hgb A1c 6.8%. Calcium elevated at 10.4 - Vital signs reviewed. BP 137/83, HR 68, RR 18, T 97.4, and SPO2 92% 3L CODE STATUS: Full code DVT prophylaxis: Lovenox Anticipated discharge date: Pending clinical course Anticipated discharge place: Home Patient was seen independently by Nurse Practitioner. This document was prepared using [employer] dictation software. Please allow for errors in fiber designer while rare they do occur. John Pickering NP rendered care for this patient independently, reviewed the findings and plan as documented in the note above and agree with plan. I did not physically speak with or examine the patient on this date. Objective - Vital Signs Vital signs: Vital Signs Temp 97.8 F 12/06/24 19:49 Pulse 72 12/07/24 08:36 Resp 18 12/07/24 03:51 BP 175/83 12/07/24 03:51 Pulse Ox 92 L 12/07/24 08:24 FiO2 Intake & Output 12/06/24 12/07/24 12/07/24 18:59 06:59 18:59 Intake Total 240 240 Balance 240 240 Weight 98.43 kg 96.5 kg Intake: Oral 240 240 Other: Voiding Method Toilet Toilet # Voids 1 2 - Labs CBC & Chem 7: 12/07/24 02:37 12/07/24 02:37 Labs: Abnormal Lab Results - Last 24 Hours (Table) 12/06/24 12/06/24 12/06/24 Range/Units 09:55 09:55 09:55 WBC 11.33 H (4.50-10.00) 10*3/uL MPV 8.5 L (9.5-12.2) fL Immature Gran # 0.13 H (0.00-0.04) 10*3/uL Neutrophils # 9.67 H (1.80-7.70) 10*3/uL Eosinophils # 0.01 L (0.04-0.35) 10*3/uL Carbon Dioxide (22-30) mmol/L Creatinine (0.66-1.25) mg/dL Glucose 294 H (74-99) mg/dL POC Glucose (mg/dL) (70-110) mg/dL Hemoglobin A1c (<=6.0) % Plasma Lactic Acid Bry 2.8 H* (0.7-2.0) mmol/L Calcium (8.4-10.2) mg/dL Ur Specific [place] (1.001-1.035) Urine Protein (Negative) Urine Glucose (UA) (Negative) Urine Mucus (None) /hpf 12/06/24 12/06/24 12/06/24 Range/Units 12:35 13:10 15:55 WBC (4.50-10.00) 10*3/uL MPV (9.5-12.2) fL Immature Gran # (0.00-0.04) 10*3/uL Neutrophils # (1.80-7.70) 10*3/uL Eosinophils # (0.04-0.35) 10*3/uL Carbon Dioxide (22-30) mmol/L Creatinine (0.66-1.25) mg/dL Glucose (74-99) mg/dL POC Glucose (mg/dL) (70-110) mg/dL Hemoglobin A1c (<=6.0) % Plasma Lactic Acid Bry 2.9 H* 2.6 H* (0.7-2.0) mmol/L Calcium (8.4-10.2) mg/dL Ur Specific [place] 1.038 H (1.001-1.035) Urine Protein 1+ H (Negative) Urine Glucose (UA) 2+ H (Negative) Urine Mucus Rare H (None) /hpf 12/06/24 12/06/24 12/06/24 Range/Units 16:45 18:59 20:08 WBC (4.50-10.00) 10*3/uL MPV (9.5-12.2) fL Immature Gran # (0.00-0.04) 10*3/uL Neutrophils # (1.80-7.70) 10*3/uL Eosinophils # (0.04-0.35) 10*3/uL Carbon Dioxide (22-30) mmol/L Creatinine (0.66-1.25) mg/dL Glucose (74-99) mg/dL POC Glucose (mg/dL) 284 H 299 H (70-110) mg/dL Hemoglobin A1c (<=6.0) % Plasma Lactic Acid Bry 2.8 H* (0.7-2.0) mmol/L Calcium (8.4-10.2) mg/dL Ur Specific [place] (1.001-1.035) Urine Protein (Negative) Urine Glucose (UA) (Negative) Urine Mucus (None) /hpf 12/06/24 12/07/24 12/07/24 Range/Units 22:30 02:37 02:37 WBC 14.53 H (4.50-10.00) 10*3/uL MPV 8.7 L (9.5-12.2) fL Immature Gran # 0.25 H (0.00-0.04) 10*3/uL Neutrophils # 12.61 H (1.80-7.70) 10*3/uL Eosinophils # 0.00 L (0.04-0.35) 10*3/uL Carbon Dioxide (22-30) mmol/L Creatinine (0.66-1.25) mg/dL Glucose (74-99) mg/dL POC Glucose (mg/dL) (70-110) mg/dL Hemoglobin A1c 6.8 H (<=6.0) % Plasma Lactic Acid Bry 2.7 H* (0.7-2.0) mmol/L Calcium (8.4-10.2) mg/dL Ur Specific [place] (1.001-1.035) Urine Protein (Negative) Urine Glucose (UA) (Negative) Urine Mucus (None) /hpf 12/07/24 12/07/24 Range/Units 02:37 06:05 WBC (4.50-10.00) 10*3/uL MPV (9.5-12.2) fL Immature Gran # (0.00-0.04) 10*3/uL Neutrophils # (1.80-7.70) 10*3/uL Eosinophils # (0.04-0.35) 10*3/uL Carbon Dioxide 32 H (22-30) mmol/L Creatinine 0.60 L (0.66-1.25) mg/dL Glucose 216 H (74-99) mg/dL POC Glucose (mg/dL) 192 H (70-110) mg/dL Hemoglobin A1c (<=6.0) % Plasma Lactic Acid Bry (0.7-2.0) mmol/L Calcium 10.4 H (8.4-10.2) mg/dL Ur Specific Nar[place] (1.001-1.035) Urine Protein (Negative) Urine Glucose (UA) (Negative) Urine Mucus (None) /hpf Microbiology - Last 24 Hours (Table) 12/06/24 12:14 Gram Stain - Preliminary Sputum
[2024-12-07] MEDS: AZITHROMYCIN 500 MG TAB PO SCH (12:16)
--- NOTE | 2024-12-07 14:59 | P.PN ---
Subjective Progress Note Date: 12/07/24 Principal diagnosis: Shortness of breath. This is a pleasant 69-year-old male patient with a known history of hypothyroidism. He has a 2-week history of increasing shortness of breath cough and congestion. He was treated with Augmentin and steroids in the outpatient setting without much improvement. He did have RSV in June 2024. He does have a history of chronic obstructive pulmonary disease with chronic and ongoing tobacco dependence and is on home oxygen as needed. He is on Symbicort and albuterol. He presented to the emergency room today. O2 saturation 87% on room air. Currently in the 90s on 2 L/min per nasal cannula. Chest x-ray reveals some mild left lower lobe infiltrate. Atelectasis. Doppler of the lower extremities revealed no evidence of DVT. CT angiogram revealed no evidence of pulmonary embolism. There was an incidental finding of a 6 mm right lower lobe pulmonary nodule. Lung osman were clear. White count 11.3. Hemoglobin 14.2. Platelets 298. D-dimer 0.34. Sodium 141. Potassium 4.4. Bicarb 28. BUN 19. Creatinine 0.67. Glucose 294. Troponin negative x 1. proBNP 379. Urinalysis clean. Viral screen negative for influenza A/B, RSV and COVID. He is seen today in consultation on the selective care unit. He is currently sitting up in a chair. Awake and alert in no acute distress. Maintaining good O2 saturations in the 90s on 2 L/min per nasal cannula. He does have a loose congested cough. No fever or chills. No hemoptysis. Progress note dated December 07, 2024. 69-year-old male seen today in room 371. I have to report that he is feeling much better. He is on lactated Ringer's at 130 cc an hour. He is getting nasal O2 at 3 L. His Solu-Medrol will be changed to prednisone 40 mg today. The patient likely has COPD from years of tobacco use. He has never seen a night monitor in the past. I asked him to come see me in the office, after discharge. He will need a complete pulmonary function test. Current labs include a white count of 14.5, hemoglobin 14.5, hematocrit 44.2, platelet count 328,000. Sodium 140 potassium 4.7, chloride 98, CO2 32, anion gap 10, BUN 15, creatinine 0.6. Glucose 147. Hemoglobin A1c 6.8. Lactic acid 2.7. Repeat 1.8. Calcium 10.4. Sputum Gram stain is currently negative. Chest x-ray is consistent with either atypical pneumonia, versus mild pulmonary edema. Objective - Vital Signs Vital signs: Vital Signs Temp 97.4 F L 12/07/24 08:35 Pulse 64 12/07/24 12:24 Resp 18 12/07/24 11:15 BP 159/74 12/07/24 11:15 Pulse Ox 93 L 12/07/24 11:15 FiO2 Intake & Output 12/06/24 12/07/24 12/07/24 18:59 06:59 18:59 Intake Total 240 480 Balance 240 480 Weight 98.43 kg 96.5 kg Intake: Oral 240 480 Other: Voiding Method Toilet Toilet Toilet # Voids 1 2 1 # Bowel Movements 1 - Exam No acute distress, oriented 3. Currently on 3 L. No conversational dyspnea or use of accessory muscles. HEENT examination is grossly unremarkable. Mucous membranes are moist. No oral lesions. Neck supple. Full range of motion. No adenopathy thyromegaly or neck vein distention. Cardiovascular examination reveals regular rhythm rate. S1-S2 normal. No S3 or S4. No discernible murmur noted. Lungs reveal bilateral scattered rhonchi and wheezes. No crackles. Breath sounds equal bilaterally. Breath sounds are diminished. Abdomen soft bowel sounds are heard. No masses or tenderness. Extremities are intact. No cyanosis clubbing or edema. Skin is without rash or lesion. Neurologic examination is brief but nonfocal. - Labs CBC & Chem 7: 12/07/24 02:37 12/07/24 02:37 Labs: Abnormal Lab Results - Last 24 Hours (Table) 12/06/24 12/06/24 12/06/24 Range/Units 15:55 16:45 18:59 WBC (4.50-10.00) 10*3/uL MPV (9.5-12.2) fL Immature Gran # (0.00-0.04) 10*3/uL Neutrophils # (1.80-7.70) 10*3/uL Eosinophils # (0.04-0.35) 10*3/uL Carbon Dioxide (22-30) mmol/L Creatinine (0.66-1.25) mg/dL Glucose (74-99) mg/dL POC Glucose (mg/dL) 284 H (70-110) mg/dL Hemoglobin A1c (<=6.0) % Plasma Lactic Acid Bry 2.6 H* 2.8 H* (0.7-2.0) mmol/L Calcium (8.4-10.2) mg/dL 12/06/24 12/06/24 12/07/24 Range/Units 20:08 22:30 02:37 WBC (4.50-10.00) 10*3/uL MPV (9.5-12.2) fL Immature Gran # (0.00-0.04) 10*3/uL Neutrophils # (1.80-7.70) 10*3/uL Eosinophils # (0.04-0.35) 10*3/uL Carbon Dioxide (22-30) mmol/L Creatinine (0.66-1.25) mg/dL Glucose (74-99) mg/dL POC Glucose (mg/dL) 299 H (70-110) mg/dL Hemoglobin A1c 6.8 H (<=6.0) % Plasma Lactic Acid Bry 2.7 H* (0.7-2.0) mmol/L Calcium (8.4-10.2) mg/dL 12/07/24 12/07/24 12/07/24 Range/Units 02:37 02:37 06:05 WBC 14.53 H (4.50-10.00) 10*3/uL MPV 8.7 L (9.5-12.2) fL Immature Gran # 0.25 H (0.00-0.04) 10*3/uL Neutrophils # 12.61 H (1.80-7.70) 10*3/uL Eosinophils # 0.00 L (0.04-0.35) 10*3/uL Carbon Dioxide 32 H (22-30) mmol/L Creatinine 0.60 L (0.66-1.25) mg/dL Glucose 216 H (74-99) mg/dL POC Glucose (mg/dL) 192 H (70-110) mg/dL Hemoglobin A1c (<=6.0) % Plasma Lactic Acid Bry (0.7-2.0) mmol/L Calcium 10.4 H (8.4-10.2) mg/dL 12/07/24 Range/Units 11:35 WBC (4.50-10.00) 10*3/uL MPV (9.5-12.2) fL Immature Gran # (0.00-0.04) 10*3/uL Neutrophils # (1.80-7.70) 10*3/uL Eosinophils # (0.04-0.35) 10*3/uL Carbon Dioxide (22-30) mmol/L Creatinine (0.66-1.25) mg/dL Glucose (74-99) mg/dL POC Glucose (mg/dL) 147 H (70-110) mg/dL Hemoglobin A1c (<=6.0) % Plasma Lactic Acid Bry (0.7-2.0) mmol/L Calcium (8.4-10.2) mg/dL Microbiology - Last 24 Hours (Table) 12/06/24 12:14 Gram Stain - Preliminary Sputum Sputum Culture - Preliminary Assessment and Plan Assessment: Acute on chronic hypoxic respiratory failure secondary to an acute exacerbation of chronic obstructive pulmonary disease complicated by tracheobronchitis. Right lower lobe pulmonary nodule measuring 6 mm. Chronic and ongoing tobacco dependence. History of RSV in June 2024. Hypothyroidism. Marijuana use. Plan: Plan dated December 07, 2024. I am happy to report, the patient is feeling much better. His breathing is much improved. He continues on 3 L nasal O2. He is getting lactated Ringer's at 130 cc an hour. Solu-Medrol will be converted to prednisone 40 mg a day. After discharge, the patient will see us in the office, and will need a full PFT. Labs, x-rays, and all medications are reviewed. We are primarily treating of COPD exacerbation. We will continue to follow make recommendations. Dictation was produced using [employer] software. Please excuse any grammatical, word or spelling errors. Time with Patient: Less than 30
[2024-12-07 16:36] LABS: Glucose,Whole Blood 321 mg/dL (70-110)
[2024-12-07 19:51] LABS: Glucose,Whole Blood 263 mg/dL (70-110)
[2024-12-08 05:52] LABS: Glucose,Whole Blood 215 mg/dL (70-110)
[2024-12-08 07:34] LABS: HCT 45.8 % (39.6-50.0); HGB 15.2 g/dL (13.0-17.0); MCH 29.3 pg (27.0-32.0); MCHC 33.2 g/dL (32.0-37.0); MCV 88.4 fL (80.0-97.0); Mean Platelet Volume 8.7 fL (9.5-12.2); Platelet Count 364 10*3/uL (140-440); RBC 5.18 10*6/uL (4.40-5.60); WBC 18.95 10*3/uL (4.50-10.00)
[2024-12-08 07:53] LABS: African American GFR (CKD) >90 (>60 ml/min/1.73 sqM); Anion Gap 9 mmol/L; Blood Urea Nitrogen 26 mg/dL (9-20); Calcium 10.1 mg/dL (8.4-10.2); Carbon Dioxide 33 mmol/L (22-30); Chloride 96 mmol/L (98-107); Glucose 221 mg/dL (74-99); Magnesium 2.1 mg/dL (1.6-2.3); Non-African American GFR(CKD) >90 (>60 ml/min/1.73 sqM); Potassium 4.7 mmol/L (3.5-5.1); Sodium 138 mmol/L (137-145)
[2024-12-08] MEDS: AZITHROMYCIN 500 MG TAB PO SCH (10:02)
[2024-12-08 11:21] VITALS: BP 136/70; TEMP 98.1
[2024-12-08 11:55] LABS: Glucose,Whole Blood 167 mg/dL (70-110)
[2024-12-08 12:00] VITALS: PULSE 70
--- NOTE | 2024-12-08 14:05 | P.PN ---
Subjective Progress Note Date: 12/08/24 This is a pleasant 69-year-old male patient with a known history of hypothyroidism. He has a 2-week history of increasing shortness of breath cough and congestion. He was treated with Augmentin and steroids in the outpatient setting without much improvement. He did have RSV in June 2024. He does conrelius ve a history of chronic obstructive pulmonary disease with chronic and ongoing tobacco dependence and is on home oxygen as needed. He is on Symbicort and albuterol. He presented to the emergency room today. O2 saturation 87% on room air. Currently in the 90s on 2 L/min per nasal cannula. Chest x-ray reveals some mild left lower lobe infiltrate. Atelectasis. Doppler of the lower extremities revealed no evidence of DVT. CT angiogram revealed no evidence of pulmonary embolism. There was an incidental finding of a 6 mm right lower lobe pulmonary nodule. Lung osman were clear. White count 11.3. Hemoglobin 14.2. Platelets 298. D-dimer 0.34. Sodium 141. Potassium 4.4. Bicarb 28. BUN 19. Creatinine 0.67. Glucose 294. Troponin negative x 1. proBNP 379. Urinalysis clean. Viral screen negative for influenza A/B, RSV and COVID. He is seen today in consultation on the selective care unit. He is currently sitting up in a chair. Awake and alert in no acute distress. Maintaining good O2 saturations in the 90s on 2 L/min per nasal cannula. He does have a loose congested cough. No fever or chills. No hemoptysis. Progress note dated December 07, 2024. 69-year-old male seen today in room 371. I have to report that he is feeling much better. He is on lactated Ringer's at 130 cc an hour. He is getting nasal O2 at 3 L. His Solu-Medrol will be changed to prednisone 40 mg today. The patient likely has COPD from years of tobacco use. He has never seen a molder shoulder pad in the past. I asked him to come see me in the office, after discharge. He will need a complete pulmonary function test. Current labs include a white count of 14.5, hemoglobin 14.5, hematocrit 44.2, platelet count 328,000. Sodium 140 potassium 4.7, chloride 98, CO2 32, anion gap 10, BUN 15, creatinine 0.6. Glucose 147. Hemoglobin A1c 6.8. Lactic acid 2.7. Repeat 1.8. Calcium 10.4. Sputum Gram stain is currently negative. Chest x-ray is consistent with either atypical pneumonia, versus mild pulmonary edema. The patient is seen today December 08, 2024 in follow-up on the selective care unit. He is currently sitting up in a chair at the bedside. Awake and alert in no acute distress. Maintaining O2 saturations in the 90s on room air oxygen. He has been afebrile. Hemodynamically stable. Blood culture revealed no growth. Sputum culture revealed no growth. White count 18.9. Hemoglobin 15.2. Platelets 364. Sodium 138. Potassium 4.7. Bicarb 33. BUN 26. Creatinine 0.76. Glucose 221. He remains on DuoNeb ventilations, Symbicort, Solu-Medrol. Lovenox for DVT prophylaxis. Empiric antibiotics in the form of ceftriaxone. Objective - Vital Signs Vital signs: Vital Signs Temp 98.1 F 12/08/24 10:00 Pulse 70 12/08/24 12:08 Resp 18 12/08/24 10:00 BP 136/70 12/08/24 10:00 Pulse Ox 95 12/08/24 10:00 FiO2 Intake & Output 12/07/24 12/08/24 12/08/24 18:59 06:59 18:59 Intake Total 720 440 Balance 720 440 Weight 97.4 kg Intake: Oral 720 440 Other: Voiding Method Toilet Toilet Toilet # Voids 1 1 # Bowel Movements 1 - Exam GENERAL EXAM: Alert, active, 69-year-old male, up in a chair, on room air oxygen, comfortable in no apparent distress. HEAD: Normocephalic. EYES: Normal reaction of pupils, equal size. NOSE: Clear with pink turbinates. THROAT: No erythema or exudates. NECK: No masses, no JVD. CHEST: No chest wall deformity. LUNGS: Equal air entry with faint bilateral end expiratory wheeze. CVS: S1 and S2 normal with no audible murmur, regular rhythm. ABDOMEN: No hepatosplenomegaly, normal bowel sounds, no guarding or rigidity. SPINE: No scoliosis or deformity SKIN: No rashes CENTRAL NERVOUS SYSTEM: No focal deficits, tone is normal in all 4 extremities. EXTREMITIES: There is no peripheral edema. No clubbing, no cyanosis. Peripheral pulses are intact. - Labs CBC & Chem 7: 12/08/24 07:09 12/08/24 07:09 Labs: Abnormal Lab Results - Last 24 Hours (Table) 12/07/24 12/07/24 12/08/24 Range/Units 16:35 19:50 05:51 WBC (4.50-10.00) 10*3/uL MPV (9.5-12.2) fL Chloride (98-107) mmol/L Carbon Dioxide (22-30) mmol/L BUN (9-20) mg/dL Glucose (74-99) mg/dL POC Glucose (mg/dL) 321 H 263 H 215 H (70-110) mg/dL 12/08/24 12/08/24 12/08/24 Range/Units 07:09 07:09 11:50 WBC 18.95 H (4.50-10.00) 10*3/uL MPV 8.7 L (9.5-12.2) fL Chloride 96 L (98-107) mmol/L Carbon Dioxide 33 H (22-30) mmol/L BUN 26 H (9-20) mg/dL Glucose 221 H (74-99) mg/dL POC Glucose (mg/dL) 167 H (70-110) mg/dL Microbiology - Last 24 Hours (Table) 12/06/24 12:14 Gram Stain - Final Sputum Sputum Culture - Final 12/06/24 12:14 Blood Culture - Preliminary Blood Assessment and Plan Assessment: Acute on chronic hypoxic respiratory failure secondary to an acute exacerbation of chronic obstructive pulmonary disease complicated by tracheobronchitis. Viral screen negative for influenza A/B, RSV and COVID. CT angiogram ruled out pulmonary embolism. Lung osman are clear. Right lower lobe pulmonary nodule measuring 6 mm. To have follow-up CT in 6 to 12 months Chronic and ongoing tobacco dependence History of RSV in June 2024 Hypothyroidism Marijuana use Plan: The patient was seen and evaluated Labs and medications reviewed Stable and on room air oxygen Cleared for discharge Continue DuoNeb inhalations Continue Symbicort Completed prednisone taper Initiate DuoNeb inhalations Educated regarding smoking cessation NicoDerm patch will be offered Aware of pulmonary nodule Follow-up CT scan of the chest in 6 to 12 months I have personally seen and examined the patient, performed the documentation and the assessment and plan as written. Number of minutes spent on the visit: 10 Dictation was produced using [employer] dictation software. Please excuse any grammatical, word or spelling errors.
--- NOTE | 2024-12-08 14:18 | P.PN ---
Subjective Progress Note Date: 12/08/24 Principal diagnosis: Shortness of breath. This is a pleasant 69-year-old male patient with a known history of hypothyroidism. He has a 2-week history of increasing shortness of breath cough and congestion. He was treated with Augmentin and steroids in the outpatient setting without much improvement. He did have RSV in June 2024. He does have a history of chronic obstructive pulmonary disease with chronic and ongoing tobacco dependence and is on home oxygen as needed. He is on Symbicort and albuterol. He presented to the emergency room today. O2 saturation 87% on room air. Currently in the 90s on 2 L/min per nasal cannula. Chest x-ray reveals some mild left lower lobe infiltrate. Atelectasis. Doppler of the lower extremities revealed no evidence of DVT. CT angiogram revealed no evidence of pulmonary embolism. There was an incidental finding of a 6 mm right lower lobe pulmonary nodule. Lung osman were clear. White count 11.3. Hemoglobin 14.2. Platelets 298. D-dimer 0.34. Sodium 141. Potassium 4.4. Bicarb 28. BUN 19. Creatinine 0.67. Glucose 294. Troponin negative x 1. proBNP 379. Urinalysis clean. Viral screen negative for influenza A/B, RSV and COVID. He is seen today in consultation on the selective care unit. He is currently sitting up in a chair. Awake and alert in no acute distress. Maintaining good O2 saturations in the 90s on 2 L/min per nasal cannula. He does have a loose congested cough. No fever or chills. No hemoptysis. Progress note dated December 07, 2024. 69-year-old male seen today in room 371. I have to report that he is feeling much better. He is on lactated Ringer's at 130 cc an hour. He is getting nasal O2 at 3 L. His Solu-Medrol will be changed to prednisone 40 mg today. The patient likely has COPD from years of tobacco use. He has never seen a instrument/control technician in the past. I asked him to come see me in the office, after discharge. He will need a complete pulmonary function test. Current labs include a white count of 14.5, hemoglobin 14.5, hematocrit 44.2, platelet count 328,000. Sodium 140 potassium 4.7, chloride 98, CO2 32, anion gap 10, BUN 15, creatinine 0.6. Glucose 147. Hemoglobin A1c 6.8. Lactic acid 2.7. Repeat 1.8. Calcium 10.4. Sputum Gram stain is currently negative. Chest x-ray is consistent with either atypical pneumonia, versus mild pulmonary edema. Progress note dated December 08, 2024. 69-year-old male seen today in room 371. The patient was admitted with a diagnosis of COPD exacerbation. The patient has never seen a instrument/control technician, and will follow-up in our office, after discharge. Currently, the patient is on LR 10 cc an hour, and room air. He feels well, and would like to be discharged home if possible. Current labs include a white count of 18.9, hemoglobin 15.2, hematocrit 45.8, and a platelet count of 364,000. Sodium 138, potassium 4.7, chlorides 96, CO2 33, BUN 26, and creatinine 0.76. Glucose is 167. Calcium 10.1, magnesium 2.1. Blood and sputum cultures are negative. Chest x-ray from December 07 has been reviewed. Objective - Vital Signs Vital signs: Vital Signs Temp 98.1 F 12/08/24 10:00 Pulse 70 12/08/24 12:08 Resp 18 12/08/24 10:00 BP 136/70 12/08/24 10:00 Pulse Ox 95 12/08/24 10:00 FiO2 Intake & Output 12/07/24 12/08/24 12/08/24 18:59 06:59 18:59 Intake Total 720 440 Balance 720 440 Weight 97.4 kg Intake: Oral 720 440 Other: Voiding Method Toilet Toilet Toilet # Voids 1 1 # Bowel Movements 1 - Exam No acute distress, oriented 3. Currently on room air. No conversational dyspnea or use of accessory muscles. HEENT examination is grossly unremarkable. Mucous membranes are moist. No oral lesions. Neck supple. Full range of motion. No adenopathy thyromegaly or neck vein distention. Cardiovascular examination reveals regular rhythm rate. S1-S2 normal. No S3 or S4. No discernible murmur noted. Lungs reveal mostly clear breath sounds. Minimal rhonchi. No wheezes or crackles. Breath sounds equal bilaterally. Breath sounds are diminished throughout. Abdomen soft bowel sounds are heard. No masses or tenderness. Extremities are intact. No cyanosis clubbing or edema. Skin is without rash or lesion. Neurologic examination is brief but nonfocal. - Labs CBC & Chem 7: 12/08/24 07:09 12/08/24 07:09 Labs: Abnormal Lab Results - Last 24 Hours (Table) 12/07/24 12/07/24 12/08/24 Range/Units 16:35 19:50 05:51 WBC (4.50-10.00) 10*3/uL MPV (9.5-12.2) fL Chloride (98-107) mmol/L Carbon Dioxide (22-30) mmol/L BUN (9-20) mg/dL Glucose (74-99) mg/dL POC Glucose (mg/dL) 321 H 263 H 215 H (70-110) mg/dL 12/08/24 12/08/24 12/08/24 Range/Units 07:09 07:09 11:50 WBC 18.95 H (4.50-10.00) 10*3/uL MPV 8.7 L (9.5-12.2) fL Chloride 96 L (98-107) mmol/L Carbon Dioxide 33 H (22-30) mmol/L BUN 26 H (9-20) mg/dL Glucose 221 H (74-99) mg/dL POC Glucose (mg/dL) 167 H (70-110) mg/dL Microbiology - Last 24 Hours (Table) 12/06/24 12:14 Gram Stain - Final Sputum Sputum Culture - Final 12/06/24 12:14 Blood Culture - Preliminary Blood Assessment and Plan Assessment: Acute on chronic hypoxic respiratory failure secondary to an acute exacerbation of chronic obstructive pulmonary disease complicated by tracheobronchitis. Right lower lobe pulmonary nodule measuring 6 mm. Chronic and ongoing tobacco dependence. History of RSV in June 2024. Hypothyroidism. Marijuana use. Plan: Plan dated December 07, 2024. I am happy to report, the patient is feeling much better. His breathing is much improved. He continues on 3 L nasal O2. He is getting lactated Ringer's at 130 cc an hour. Solu-Medrol will be converted to prednisone 40 mg a day. After discharge, the patient will see us in the office, and will need a full PFT. Labs, x-rays, and all medications are reviewed. We are primarily treating of COPD exacerbation. We will continue to follow make recommendations. Dictation was produced using Dragon dictation software. Please excuse any grammatical, word or spelling errors. Plan dated December 08, 2024. In our opinion, the patient is stable for discharge. The patient was placed on prednisone with a taper. Will see him in the office, at which time we will order PFTs. Labs, x-rays, and all medications are reviewed. We will continue to follow the patient, make recommendations. Prognosis is thought to be good. The patient is a DO NOT RESUSCITATE patient. He will also need follow-up for the solitary pulmonary nodule. Dictation was produced using [employer] software. Please excuse any grammatical, word or spelling errors. Time with Patient: Less than 30
--- NOTE | 2024-12-08 15:45 | P.DS ---
Providers Date of admission: 12/06/24 13:03 Expected date of discharge: 12/08/24 Attending physician: Jodee Meneses MD Consults: 12/06/24 12:17 Consult Physician Routine Consulting Provider: Pilo Posadas Consult Reason/Comments: copd, pneumonia, acute on chronic hypoxic resp failure Do you want consulting provider notified?: Yes Primary care physician: Stated None Hospital Course: Discharge Diagnosis: Community-acquired pneumonia. Patient received 3-day course of IV antibiotics with Rocephin and azithromycin. Patient discharged home and instructed to complete previously prescribed Augmentin prescription over the next 2 days. Patient to follow-up outpatient with PCP, Dr. Connor on 12/12/2024 at 1:30 PM COPD with acute exacerbation. Patient scheduled for follow-up appointment with metal furniture polisher on 12/21/2024 at 8:45 AM and to complete full pulmonary function testing. Patient to continue Symbicort 2 puffs twice daily and DuoNebs as ne eded for wheezing/shortness of breath. Patient discharged home with prednisone taper and to complete previously prescribed Augmentin prescription. Acute respiratory failure with hypoxia, secondary to above. Resolved patient 95% on room air at time of discharge. Patient does have home oxygen to use as needed that was previously prescribed back in June. Lactic acidosis, secondary to above. Resolved Hypertensive urgency, Resolved. Patient was started on losartan/hydrochlorothiazide 50-12.5 mg tablets daily. Patient encouraged to monitor blood pressure closely at home twice daily and document findings in a daily log to bring with him to his follow-up appointment with PCP. Echocardiogram was completed during this admission but results remain pending at time of discharge. Discussed with patient these results can be followed up with PCP and metal furniture polisher at outpatient follow-up visits and will not hold up discharge pending these results. Pulmonary nodule, incidental finding on CT. CTA chest revealing 6 mm right lower lobe pulmonary nodule recommend close outpatient surveillance with repeat CT in 6 months. Hyperglycemia, New diagnosis of Type II diabetes mellitus with hemoglobin A1c of 6.8%. Patient was provided with glucometer and testing supplies and to follow- up outpatient with PCP for long-term monitoring/management. Hypercalcemia. Resolved with IV fluid hydration. Hypothyroidism. Continue daily medication regimen with levothyroxine 176 mcg daily. Hospital Course: Patient is a very pleasant 69-year-old male with a past medical history of hypothyroidism and COPD. He reports previously on home oxygen after RSV infection in June but reports was since weaned off and only uses on an as- needed basis. He states he has been battling an upper respiratory infection since and that this has continued to worsen over the past 2 weeks. He reports being seen by his PCP and started on Augmentin and oral steroids with no improvement, patient reports occasional productive cough of white to yellow sputum production, but reports cough is mostly nonproductive. Patient denies fevers, chills, diaphoresis, headache, lightheadedness, dizziness, chest pain, palpitations, nausea, vomiting, or experiencing any numbness/tingling/weakness in his extremities. He does report lower extremity edema and states it has been worse because he has not been able to elevate his legs at night to sleep because he cannot breathe. Patient does report extensive travel stating he primarily lives on a boat and travels back and forth from [place], [facility], and [place]. Upon arrival to our facility, patient underwent evaluation in the emergency department. Vital signs upon arrival show blood pressure 205/88, heart rate 94, respiratory rate 18, temp 97.7 F, and SpO2 of 87% on room air. EKG completed showing normal sinus rhythm at [address]/T wave abnormalities. Bilateral lower extremity Dopplers negative for DVT. Chest x-ray showing mild left lower lobe infiltrate concerning for pneumonia. CTA chest completed negative for pulmonary emboli showing a 6 mm right lower lobe pulmonary nodule. Labs completed and reviewed. CBC showing leukocytosis with WBC count of 11.33, immature granulocytes of 0.13, neutrophils of 9.67. BMP showing hyperglycemia with blood glucose of 294. Lactic acid elevated at 2.8. Calcium 8.8. Magnesium 2.0. Liver profile unremarkable. Troponin was negative at less than 0.012 and proBNP 379. Patient was given a one-time dose of hydralazine by ED physician and blood pressure improving to 187/94 but again increasing to 193/103. Patient admitted under our services with consultation to pulmonology. Echocardiogram was completed but remains pending results. Patient has been cleared from pulmonary perspective for discharge and is medically optimized for discharge at this time. Discussed with patient we will not hold discharge up while waiting on echocardiogram results. These results will need to be followed up with by PCP at patient's follow-up appointment which was made prior to his discharge. Patient is scheduled for doctors appointment with Dr. Connor on 12/12/2024 at 1:[address] Posadas, metal furniture polisher on 12/21/2024 at 8:45 AM. Discharge instructions were discussed in detail with patient at bedside as well as with patient's daughter, Cassie via telephone Physical exam: Vital signs reviewed and stable. General: Nontoxic, no distress and appears stated age. Derm: Skin warm and dry, normal coloration for ethnicity. Head: Atraumatic, normocephalic and symmetric. Eyes: EOM's intact, no lid lag, and anicteric sclera Mouth: no lip lesions, mucus membranes moist Cardiovascular: regular rate and rhythm with normal S1S2, no murmur, positive posterior tibial pulses bilaterally, and cap refill < 2 seconds. Lungs: Respirations even, regular, and unlabored on 3 L O2 via nasal cannula. Lungs diminished with very soft expiratory wheeze. No rhonchi. rales, or crackles. No accessory muscle usage. Abdominal: soft, nontender to palpation, no guarding, no appreciable organomegaly Ext: ROM intact. No gross muscle atrophy, Bilateral lower extremity edema, right worse than left. Neuro: Speech clear, face symmetrical and CN II-XII grossly intact with no noted focal neuro deficits Psych: Alert and oriented to person, place, time, and situation. Appropriate and pleasant affect. A total of 35 minutes of time were spent preparing this complex discharge summary. Pt was discharged on 12/08/2024 at 9:58 AM. Patient was seen independently by Nurse Practitioner. This document was prepared using [employer] dictation software. Please allow for errors in land management forester while rare they do occur. John Pickering NP rendered care for this patient independently, reviewed the findings and plan as documented in the note above. I did not physically speak with or examine the patient on this date. Patient Condition at Discharge: Stable Plan - Discharge Summary Discharge Rx Participant: No New Discharge Prescriptions: New metFORMIN HCL [Glucophage] 500 mg PO BID 30 Days #60 tab Losartan-Hctz 50-12.5 mg [Hyzaar 50-12.5] 1 each PO DAILY 30 Days #30 tab predniSONE See Taper PO DIRECTED 12 Days #30 tab Continue Amoxic-Pot Clav 875-125Mg [Augmentin 875-125] 1 tab PO BID Budesonide/Formoterol Fumarate [Symbicort 160-4.5 Mcg Inhaler] 2 puff INHALATION RT-BID Levothyroxine Sodium [Synthroid] 175 mcg PO DAILY Ipratropium Nebulized [Atrovent Nebulized 0.2 MG/ML] 0.5 mg INHALATION RT-BID Albuterol Nebulized [Ventolin Nebulized (Accuneb)] 1.25 mg INHALATION RT-BID Discontinued predniSONE [Deltasone] 20 mg PO BID Discharge Medication List Albuterol Nebulized [Ventolin Nebulized (Accuneb)] 1.25 mg INHALATION RT-BID 12/06/24 [History] Amoxic-Pot Clav 875-125Mg [Augmentin 875-125] 1 tab PO BID 12/06/24 [History] Budesonide/Formoterol Fumarate [Symbicort 160-4.5 Mcg Inhaler] 2 puff INHALATION RT-BID 12/06/24 [History] Ipratropium Nebulized [Atrovent Nebulized 0.2 MG/ML] 0.5 mg INHALATION RT-BID 12/06/24 [History] Levothyroxine Sodium [Synthroid] 175 mcg PO DAILY 12/06/24 [History] Losartan-Hctz 50-12.5 mg [Hyzaar 50-12.5] 1 each PO DAILY 30 Days #30 tab 12/08/24 [Rx] metFORMIN HCL [Glucophage] 500 mg PO BID 30 Days #60 tab 12/08/24 [Rx] predniSONE See Taper PO DIRECTED 12 Days #30 tab 12/08/24 [Rx] Follow up Appointment(s)/Referral(s): Reji Connor DO [REFERRING] - 12/12/24 1:30 pm (.) Pilo Posadas DO [Doctor of Osteopathic Medicine] - 12/21/24 8:45 am Patient Instructions/Handouts: Type 2 Diabetes in Adults: New Diagnosis (DC), COPD (Chronic Obstructive Pulmonary Disease) (DC), Community Acquired Pneumonia (DC), Hypertension (DC), Chronic Lung Disease and Infection Prevention (DC) Activity/Diet/Wound Care/Special Instructions: Activity: As tolerated. Take breaks as needed. Diet: Heart healthy and carb consistent diet. Special Instructions: Take all of your medications as directed and remember to keep all of your doctor's appointments and follow-up as needed. As discussed your CT scan revealed a single pulmonary nodule measuring 6 mm in your right lower lobe, guidelines suggest continued monitoring/surveillance with repeat CT in 6 months. This can be ordered by your metal furniture polisher, Dr. Posadas during one of your follow-up appointments. Thank you for allowing us to participate in your care, it was truly a pleasure having you for our patient!!! Discharge Disposition: HOME SELF-CARE
--- NOTE | 2024-12-08 18:59 | CA ---
Transthoracic Echo Report Name: Juan Antonio Ortez Age: 69 Gender: M : 1955 Exam Date: 12/08/2024 09:30 Exam Location: [facility] Ht (in): 69 Wt (lb): 217 Ordering Physician: John Pickering Attending/Referring Phys: Tank Truck Mechanic Claudia Thomas RDCS Procedure CPT: Indications: BLE edema, orthopnea Cardiac Hx: Technical Quality: Fair Contrast 1: Total Dose (mL): Contrast 2: Total Dose (mL): MEASUREMENTS (Male / Female) Normal Values 2D ECHO LV Diastolic Diameter PLAX 4.3 cm 4.2 - 5.9 / 3.9 - 5.3 cm LV Systolic Diameter PLAX 2.4 cm IVS Diastolic Thickness 1.3 cm 0.6 - 1.0 / 0.6 - 0.9 cm LVPW Diastolic Thickness 1.3 cm 0.6 - 1.0 / 0.6 - 0.9 cm LV Relative Wall Thickness 0.6 RV Internal Dim ED PLAX 2.3 cm LVOT Diameter 2.0 cm LA Systolic Diameter LX 3.4 cm 3.0 - 4.0 / 2.7 - 3.8 cm LV Diastolic Volume MOD BP 48.5 cm??? 67 - 155 / 56 - 104 cm??? LV Systolic Volume MOD BP 24.3 cm??? / 19 - 49 cm??? LV Ejection Fraction MOD BP 49.9 % >= 55 % LV Cardiac Index MOD BP 860.3 cm???/min???m??? LV Diastolic Volume MOD 4C 56.2 cm??? LV Systolic Volume MOD 4C 18.1 cm??? LV Ejection Fraction MOD 4C 67.8 % LV Cardiac Index MOD 4C 1357.5 cm???/min???m??? LV Diastolic Length 4C 6.2 cm LV Systolic Length 4C 4.4 cm LV Diastolic Volume MOD 2C 41.3 cm??? LV Systolic Volume MOD 2C 21.2 cm??? LV Ejection Fraction MOD 2C 48.6 % LV Cardiac Index MOD 2C 713.4 cm???/min???m??? LV Diastolic Length 2C 6.3 cm LV Systolic Length 2C 5.5 cm LA Volume 36.0 cm??? - 58 / 22 - 52 cm??? LA Volume Index 16.2 cm???/m??? 16 - 28 cm???/m??? M-MODE Aortic Root Diameter MM 3.4 cm LA Systolic Diameter MM 3.6 cm LA Ao Ratio MM 1.0 AV Cusp Separation MM 1.8 cm DOPPLER AV Peak Velocity 157.7 cm/s AV Peak Gradient 9.9 mmHg MV Area PHT 3.1 cm??? Mitral E Point Velocity 85.3 cm/s Mitral A Point Velocity 70.7 cm/s Mitral E to A Ratio 1.2 MV Deceleration Time 247.9 ms FINDINGS Left Ventricle Left ventricular ejection fraction is estimated at 55-60 %. Normal left ventricular systolic function with no obvious regional wall motion abnormalities. Left ventricular cavity size normal. Mildly increased left ventricular wall thickness. Right Ventricle Normal right ventricular size and function. Right ventricular systolic pressure within normal limits. Right Atrium Normal right atrial size. Left Atrium Normal left atrial size. Mitral Valve Mitral valve thickened. Mild mitral regurgitation. No mitral stenosis.mitral annular calcification. Aortic Valve Trileaflet aortic valve. No aortic stenosis. No aortic regurgitation.aortic valve sclerosis. Tricuspid Valve Structurally normal tricuspid valve. mild tricuspid regurgitation. No tricuspid stenosis. Pulmonic Valve Structurally normal pulmonic valve. No pulmonic regurgitation. No pulmonic stenosis. Pericardium No pericardial or pleural effusion. Aorta Normal size aortic root and proximal ascending aorta. CONCLUSIONS Normal left ventricular size and systolic function Mild mitral and tricuspid regurgitation Previewed by: Dr. Anjel Boston MD (Electronically Signed) Final Date: 08 December 2024 18:58
== END 2024-12-08 13:52 | disposition home or self-care (01) ==
LOC: EC 09:35 → INTOOBSV 13:03 → 3SCARD 13:03
PROVIDERS: ADMIT Student in an Organized Health Care Education/Training Program; ATTEND Student in an Organized Health Care Education/Training Program
DX: J44.1 Chronic obstructive pulmonary disease with (acute) exacerbation (principal); J44.0 Chronic obstructive pulmonary disease with (acute) lower respiratory infection; J18.9 Pneumonia, unspecified organism; J96.21 Acute and chronic respiratory failure with hypoxia; J20.9 Acute bronchitis, unspecified; I16.0 Hypertensive urgency; R91.1 Solitary pulmonary nodule; E11.65 Type 2 diabetes mellitus with hyperglycemia; E03.9 Hypothyroidism, unspecified; E83.52 Hypercalcemia; E87.20 Acidosis, unspecified; F17.200 Nicotine dependence, unspecified, uncomplicated; Z79.51 Long term (current) use of inhaled steroids; Z79.890 Hormone replacement therapy; Z79.899 Other long term (current) drug therapy; Z79.52 Long term (current) use of systemic steroids; Z66 Do not resuscitate
CPT/HCPCS: 96376 ×3; 96365 ×2; 96366 ×2; 96372 ×2; 96375 ×2; 99291; 36415; 94640 ×6; 94760 ×2; 93005; 93306; 85379; 83880; 80053 ×2; 80048; 87449; 83605 ×2; 83735 ×2; 84484; 85025 ×2; 85027; 85610; 85730; 81001; 87040; 87070; 87205; 83036; 84145; 87636; 71045 ×2; 93970; 71275; G0378 ×3; J2270; J0360 ×2; J0456; J0696 ×3; J1650 ×2; Q9967; J2919 ×4; 96361

== ENCOUNTER 2024-12-11 15:40 | Inpatient (IN) | payer MEDICARE ==
--- NOTE | 2024-12-11 16:33 | ED ---
Nausea/Vomiting/Diarrhea HPI - General Chief complaint: Nausea/Vomiting/Diarrhea Stated complaint: Vomiting Time Seen by Provider: 12/11/24 16:15 Source: patient, RN notes reviewed Mode of arrival: wheelchair Limitations: no limitations - History of Present Illness Initial comments: This is a 69-year-old male who presents to the emergency department for nausea and vomiting. States that it started yesterday. Patient was also just discharged from this facility 3 days ago after being admitted for COPD and pneumonia. The shortness of breath has gotten much better since being home. Denies any chest pain. States that he was having cramping in his abdomen and all over his body when he was in the hospital and it has not gotten any better. Since the nausea and vomiting he has also started to develop cramping and bloating in his abdomen. His last bowel movement was this morning. However, does not believe he is currently passing much gas. MD complaint: nausea, vomiting - Related Data Home Medications Medication Instructions Recorded Confirmed Albuterol Nebulized [Ventolin 1.25 mg INHALATION RT-BID 12/06/24 12/11/24 Nebulized (Accuneb)] Amoxic-Pot Clav 875-125Mg 1 tab PO BID 12/06/24 12/11/24 [Augmentin 875-125] Budesonide/Formoterol Fumarate 2 puff INHALATION RT-BID 12/06/24 12/11/24 [Symbicort 160-4.5 Mcg Inhaler] Ipratropium Nebulized [Atrovent 0.5 mg INHALATION RT-BID 12/06/24 12/11/24 Nebulized 0.2 MG/ML] Levothyroxine Sodium [Synthroid] 175 mcg PO DAILY 12/06/24 12/11/24 Losartan-Hctz 50-12.5 mg [Hyzaar 1 tab PO DAILY 12/11/24 12/11/24 50-12.5] Previous Rx's Medication Instructions Recorded metFORMIN HCL [Glucophage] 500 mg PO BID 30 Days #60 tab 12/08/24 predniSONE See Taper PO DIRECTED 12 Days 12/08/24 #30 tab Allergies Allergy/AdvReac Type Severity Reaction Status Date / Time metal Allergy Rash/Hives Uncoded 12/11/24 19:50 Review of Systems ROS Statement: Those systems with pertinent positive or pertinent negative responses have been documented in the HPI. ROS Other: All systems not noted in ROS Statement are negative. Past Medical History Past Medical History: Diabetes Mellitus, Hypertension, Thyroid Disorder Additional Past Medical History / Comment(s): RSV-8 day hospitalization, History of Any Multi-Drug Resistant Organisms: None Reported Past Surgical History: Orthopedic Surgery Additional Past Surgical History / Comment(s): Cateract sx, shoulder operation 30 years ago, foot operation 35 years ago Past Anesthesia/Blood Transfusion Reactions: No Reported Reaction Past Psychological History: No Psychological Hx Reported Smoking Status: Never smoker Past Alcohol Use History: Rare Past Drug Use History: Marijuana - Past Family History Mother Additional Family Medical History / Comment(s): Lived to be 91, never took any medications. Had Alzheimers last 10 years of life. Father Additional Family Medical History / Comment(s): Lived to be 76, had PTSD from WWII, had a "bad heart" and didn't take care of himself. General Exam Limitations: no limitations General appearance: alert, in no apparent distress Head exam: Present: atraumatic, normocephalic, normal inspection Respiratory exam: Present: normal lung sounds bilaterally. Absent: respiratory distress, wheezes, rales, rhonchi, stridor Cardiovascular Exam: Present: regular rate, normal rhythm GI/Abdominal exam: Present: distended, tenderness Neurological exam: Present: alert, oriented X3, CN II-XII intact Psychiatric exam: Present: normal affect, normal mood Skin exam: Present: warm, dry, intact, normal color. Absent: rash Course Vital Signs 12/11/24 12/11/24 12/11/24 16:00 17:15 18:00 Temperature 97.3 F L Pulse Rate 72 58 L 82 Respiratory 18 17 18 Rate Blood Pressure 92/55 105/53 137/78 O2 Sat by Pulse 94 L 97 92 L Oximetry 12/11/24 12/12/24 20:59 01:48 Temperature Pulse Rate 72 68 Respiratory 18 18 Rate Blood Pressure 126/68 120/56 O2 Sat by Pulse 94 L 92 L Oximetry Medical Decision Making - Medical Decision Making This is a 69 year old male who presents to the emergency department for nausea and vomiting. Was pt. sent in by a medical professional or institution? @ -No Did you speak to anyone other than the patient for history? @ -No Did you review nursing and triage notes? @ -Yes, and I agree, it is accurate with regards to the patient's symptoms. Were old charts reviewed? @ -No Differential Diagnosis? @ -Differential Nausea and Vomiting: Gastroenteritis, cholecystitis, appendicitis, pancreatitis, migraine, benign positional vertigo, food borne illness, pyelonephritis, irritable bowel syndrome , influenza, Covid, GERD, incarcerated hernia, intestinal obstruction, this is not meant to be an all-inclusive list. EKG interpreted by me (3pts min.)? @ -EKG interpreted by me demonstrating the following: Sinus rhythm. Ventricular rate 80 bpm, CT interval 142 ms, QRS duration 101 ms, QTc 439 ms. X-rays interpreted by me (1pt min.)? @ -Not obtained CT interpreted by me (1pt min.)? @ -CT scan of the abdomen and pelvis obtained. My interpretation identifies dilated small bowel loops. U/S interpreted by me (1pt. min.)? @ -Not obtained What testing was considered but not performed? (CT, X-rays, U/S, labs)? Why? @ -None What meds were considered but not given? Why? @ -None Did you discuss the management of the patient with other professionals? @ -Yes, Dr. Love, who advised antibiotics and an NG tube with medical admission. Dr. Valencia accepts the patient for admission to medicine. Did you reconcile home meds? @ -No Was smoking cessation discussed for >3mins.? @ -No Was critical care preformed (if so, how long)? @ -No Were there social determinants of health that impacted care today? How? (Homelessness, low income, unemployed, alcoholism, drug addiction, transportation, low edu. Level, literacy, decrease access to med. care, fdc, rehab)? @ -No Was there de-escalation of care discussed even if they declined? (Discuss DNR or withdrawal of care, Hospice)? @ -No What co-morbidities impacted this encounter? (DM, HTN, Smoking, COPD, CAD, Cancer, CVA, Hep., AIDS, mental health diagnosis, sleep apnea, morbid obesity)? @ -DM, HTN Was patient admitted / discharged? @ -Admitted. Lab work demonstrates leukocytosis with a white blood cell count of 18.21. This is similar when compared with discharge 3 days ago and he has also been taking steroids. Lactic acid 3.0. Patient also has an AMANDA with a creatinine of 1.69 and eGFR of 41. BUN is 50. CT scan of the abdomen and pelvis demonstrates dilated small bowel loops in the left hemiabdomen with focal transition point and fecalization of small bowel contents compatible with small bowel obstruction. Case discussed with general surgery who advised antibiotics and an NG tube. Blood culture obtained and he was started on ceftriaxone and Flagyl empirically. However, he was not thought to have an active infection related to the small bowel obstruction at this point and the leukocytosis is thought to be more so related to steroid use and patient's nausea/vomiting. Order placed for an NG tube to be hooked up to low wall intermittent suction. Patient admitted to medicine for small bowel obstruction and AMANDA. Patient kept NPO. Consult placed for general surgery. Case discussed with ED attending Dr. Henriquez. Undiagnosed new problem with uncertain prognosis? @ -None Drug Therapy requiring intensive monitoring for toxicity (Heparin, Nitro, Insulin, Cardizem)? @ -None Were any procedures done? @ -None Diagnosis/symptom? @ -Small bowel obstruction, AMANDA Acute, or Chronic, or Acute on Chronic? @ -Acute Uncomplicated (without systemic symptoms) or Complicated (systemic symptoms)? @ -Complicated Side effects of treatment? @ -None Exacerbation, Progression, or Severe Exacerbation] @ -Not applicable Poses a threat to life or bodily function? @ -Yes, can lead to life-threatening infection with bowel perforation - Lab Data Result diagrams: 12/11/24 17:11 12/11/24 17:11 Lab Results 12/11/24 12/11/24 12/11/24 Range/Units 17:11 17:11 17:11 WBC 18.21 H (4.50-10.00) 10*3/uL RBC 5.83 H (4.40-5.60) 10*6/uL Hgb 16.9 (13.0-17.0) g/dL Hct 50.2 H (39.6-50.0) % MCV 86.1 (80.0-97.0) fL MCH 29.0 (27.0-32.0) pg MCHC 33.7 (32.0-37.0) g/dL Plt Count 383 (140-440) 10*3/uL MPV 8.9 L (9.5-12.2) fL Immature Gran % (Auto) 1.4 % Neutrophils % 69.2 % Lymphocytes % 19.4 % Monocytes % 9.4 % Eosinophils % 0.4 % Basophils % 0.2 % Immature Gran # 0.25 H (0.00-0.04) 10*3/uL Neutrophils # 12.60 H (1.80-7.70) 10*3/uL Lymphocytes # 3.53 (0.90-5.00) 10*3/uL Monocytes # 1.72 H (0.20-1.00) 10*3/uL Eosinophils # 0.07 (0.04-0.35) 10*3/uL Basophils # 0.04 (0.00-0.10) 10*3/uL Sodium 136 L (137-145) mmol/L Potassium 5.1 (3.5-5.1) mmol/L Chloride 96 L (98-107) mmol/L Carbon Dioxide 24 (22-30) mmol/L Anion Gap 16 mmol/L BUN 50 H (9-20) mg/dL Creatinine 1.69 H (0.66-1.25) mg/dL Est GFR (CKD-EPI)AfAm 47 (>60 ml/min/1.73 sqM) Est GFR (CKD-EPI)NonAf 41 (>60 ml/min/1.73 sqM) Glucose 173 H (74-99) mg/dL Lactic Ac Sepsis Rflx Plasma Lactic Acid Bry 3.0 H* (0.7-2.0) mmol/L Calcium 10.7 H (8.4-10.2) mg/dL Magnesium 2.2 (1.6-2.3) mg/dL Total Bilirubin 1.4 H (0.2-1.3) mg/dL AST 30 (17-59) U/L ALT 36 (4-49) U/L Alkaline Phosphatase 67 (38-126) U/L Total Protein 8.0 (6.3-8.2) g/dL Albumin 4.9 (3.5-5.0) g/dL Lipase 89 (23-300) U/L Acetone, Qual Negative (Negative) 12/11/24 Range/Units 18:06 WBC (4.50-10.00) 10*3/uL RBC (4.40-5.60) 10*6/uL Hgb (13.0-17.0) g/dL Hct (39.6-50.0) % MCV (80.0-97.0) fL MCH (27.0-32.0) pg MCHC (32.0-37.0) g/dL Plt Count (140-440) 10*3/uL MPV (9.5-12.2) fL Immature Gran % (Auto) % Neutrophils % % Lymphocytes % % Monocytes % % Eosinophils % % Basophils % % Immature Gran # (0.00-0.04) 10*3/uL Neutrophils # (1.80-7.70) 10*3/uL Lymphocytes # (0.90-5.00) 10*3/uL Monocytes # (0.20-1.00) 10*3/uL Eosinophils # (0.04-0.35) 10*3/uL Basophils # (0.00-0.10) 10*3/uL Sodium (137-145) mmol/L Potassium (3.5-5.1) mmol/L Chloride (98-107) mmol/L Carbon Dioxide (22-30) mmol/L Anion Gap mmol/L BUN (9-20) mg/dL Creatinine (0.66-1.25) mg/dL Est GFR (CKD-EPI)AfAm (>60 ml/min/1.73 sqM) Est GFR (CKD-EPI)NonAf (>60 ml/min/1.73 sqM) Glucose (74-99) mg/dL Lactic Ac Sepsis Rflx Y Plasma Lactic Acid Bry (0.7-2.0) mmol/L Calcium (8.4-10.2) mg/dL Magnesium (1.6-2.3) mg/dL Total Bilirubin (0.2-1.3) mg/dL AST (17-59) U/L ALT (4-49) U/L Alkaline Phosphatase (38-126) U/L Total Protein (6.3-8.2) g/dL Albumin (3.5-5.0) g/dL Lipase (23-300) U/L Acetone, Qual (Negative) - Radiology Data Radiology results: report reviewed, image reviewed Disposition Clinical Impression: Small bowel obstruction, AMANDA (acute kidney injury) Disposition: ADMITTED IP TO THIS HOSP
[2024-12-11] MEDS: ONDANSETRON 4 MG/2 ML VIAL IVP STA (17:14)
[2024-12-11] MEDS: SODIUM CHLORIDE 0.9% 1,000 ML IV ONE ×2 (17:14→18:13)
[2024-12-11 17:29] LABS: Basophils # (A) 0.04 10*3/uL (0.00-0.10); Basophils % (A) 0.2 %; Eosinophils # (A) 0.07 10*3/uL (0.04-0.35); Eosinophils % (A) 0.4 %; HCT 50.2 % (39.6-50.0); HGB 16.9 g/dL (13.0-17.0); Lymphocytes # (A) 3.53 10*3/uL (0.90-5.00); Lymphocytes % (A) 19.4 %; MCHC 33.7 g/dL (32.0-37.0); MCV 86.1 fL (80.0-97.0); Mean Platelet Volume 8.9 fL (9.5-12.2); Monocytes # (A) 1.72 10*3/uL (0.20-1.00); Monocytes % (A) 9.4 %; Neutrophils % (A) 69.2 %; Platelet Count 383 10*3/uL (140-440); RBC 5.83 10*6/uL (4.40-5.60); WBC 18.21 10*3/uL (4.50-10.00)
[2024-12-11] MEDS: DICYCLOMINE 10 MG/ML 2 ML AMP IM STA (17:30)
[2024-12-11] MEDS: PROCHLORPERAZINE INJ 10 MG/2 ML VIAL IVP STA (17:36)
[2024-12-11 17:46] LABS: ALT 36 U/L (4-49); AST 30 U/L (17-59); African American GFR (CKD) 47 (>60 ml/min/1.73 sqM); Albumin 4.9 g/dL (3.5-5.0); Alkaline Phosphatase 67 U/L (38-126); Anion Gap 16 mmol/L; Blood Urea Nitrogen 50 mg/dL (9-20); Calcium 10.7 mg/dL (8.4-10.2); Carbon Dioxide 24 mmol/L (22-30); Chloride 96 mmol/L (98-107); Glucose 173 mg/dL (74-99); Lipase 89 U/L (23-300); Magnesium 2.2 mg/dL (1.6-2.3); Non-African American GFR(CKD) 41 (>60 ml/min/1.73 sqM); Potassium 5.1 mmol/L (3.5-5.1); Sodium 136 mmol/L (137-145); Total Bilirubin 1.4 mg/dL (0.2-1.3)
[2024-12-11] MEDS: METOCLOPRAMIDE 5 MG/ML 2 ML VIAL IVP STA (18:13)
--- NOTE | 2024-12-11 18:55 | CT ---
EXAMINATION TYPE: CT abdomen pelvis wo con DATE OF EXAM: 12/11/2024 6:40 PM COMPARISON: None. CLINICAL INDICATION: Male, 69 years old with history of Abdominal pain; Patient reports to with co mplains of nausea, vomiting, cramps. Patient states he thinks it is a reaction from new medication. TECHNIQUE: Axial CT abdomen pelvis wo con;Sagittal and coronal reformats were created on a separate workstation. Oral contrast used: without Oral Contrast (none if empty) CT DLP: 777.9 mGycm, Automated exposure control for dose reduction was used. FINDINGS: LOWER CHEST: Unremarkable ABDOMEN LIVER: Diffusely hypoattenuating parenchyma. GALLBLADDER AND BILE DUCTS: Unremarkable. PANCREAS: Unremarkable. SPLEEN: Unremarkable. ADRENAL GLANDS: Unremarkable. KIDNEYS AND URETERS: No evidence of hydronephrosis or renal calculus. The ureters are unremarkable. PELVIS BLADDER: No evidence for wall thickening or mass given limitations of exam. REPRODUCTIVE: Unremarkable. ABDOMEN & PELVIS STOMACH AND BOWEL: Stomach and duodenum are unremarkable. Dilated small bowel loops in the left hemia bdomen with focal transition point (25-130) in the midline abdomen. There is slight fecalization of s mall bowel contents. No evidence of free air. Fluid distention of the distal thoracic esophagus just reflux. Large bowel structures are relatively decompressed. Colonic diverticulosis. PERITONEUM/RETROPERITONEUM: No evidence of pneumoperitoneum or free fluid. VASCULATURE: No evidence of aortic aneurysm. MUSCULOSKELETAL: No acute osseous abnormalities LYMPH NODES: No gross evidence for lymphadenopathy. SOFT TISSUE/ABDOMINAL WALL: Fat-containing right inguinal hernia. IMPRESSION: Dilated small bowel loops in the left hemiabdomen with focal transition point and fecalization of sma ll bowel contents. Findings are compatible with small bowel obstruction. Surgical consultation is rec ommended. No evidence of free air/pneumoperitoneum to suggest perforation at this time. [facility], , 12/11/2024 6:53 PM
[2024-12-11] MEDS ORDERED: ACETAMINOPHEN TAB 325 MG TAB PO PRN (20:19)
[2024-12-11] MEDS ORDERED: NALOXONE 0.4 MG/ML 1 ML VIAL IV PRN (20:19)
[2024-12-11] MEDS ORDERED: HYDROcodone/APAP 5-325MG 1 EACH TAB PO PRN (20:19)
[2024-12-11] MEDS ORDERED: ONDANSETRON 4 MG/2 ML VIAL IVP PRN (20:19)
[2024-12-11] MEDS ORDERED: METOCLOPRAMIDE 5 MG/ML 2 ML VIAL IVP PRN (20:20)
[2024-12-11] MEDS: SODIUM CHLORIDE 0.9% 1,000 ML IV SCH (20:55)
[2024-12-11] MEDS: metroNIDAZOLE-NS PMX 500 MG in SALINE 1 100ML.BAG IVPB SCH (22:38)
--- NOTE | 2024-12-12 00:42 | XR ---
EXAM: XR Chest, 1 View CLINICAL HISTORY: NG tube TECHNIQUE: Frontal view of the chest. COMPARISON: Portable chest single view 12/07/2024 FINDINGS: Lungs: Coarse interstitial markings, similar to the previous examination. Pleural space: Unremarkable. No pneumothorax. No large pleural effusion. Heart: The cardiac silhouette is stable and unremarkable. Mediastinum: The mediastinal contours are stable. Bones/joints: Unremarkable. No acute fracture. Tubes, lines and devices: The nasogastric tube tip is noted at the gastroesophageal junction. IMPRESSION: The nasogastric tube tip is noted at the gastroesophageal junction. Recommend advancement at least 6-7 cm for placement in the stomach.
--- NOTE | 2024-12-12 02:14 | XR ---
EXAM: XR Chest, 1 View CLINICAL HISTORY: NG tube placement TECHNIQUE: Frontal view of the chest. COMPARISON: 2346 hours FINDINGS: Lungs: Interval improvement in the subsegmental changes at the lung bases with minimal residual findings remaining. The lungs are otherwise stable. Pleural space: Unremarkable. No pneumothorax. No large pleural effusion. Heart: Unremarkable. No cardiomegaly. Mediastinum: No significant abnormality identified. The trachea is midline. Bones/joints: Unremarkable. No acute fracture. Tubes, lines and devices: There has been interval advancement of the nasogastric tube with the tip now in the proximal to mid body of the stomach. IMPRESSION: There has been interval advancement of the nasogastric tube with the tip now in the proximal to mid body of the stomach.
--- NOTE | 2024-12-12 02:32 | P.HPIM ---
History of Present Illness H&P Date: 12/11/24 Chief Complaint: Belly pain, vomiting, and inability to eat 69-year-old male patient with a history of COPD who was recently hospitalized for COPD and pneumonia. After discharge, the patient experienced abdominal muscle contractions, vomiting, and inability to eat. The patient suspects these symptoms may be related to recently prescribed medications. He reports normal bowel movements. The patient describes bloating, pain, and cramps in the abdomen, with the pain so severe that putting on shoes was difficult. The vomitus is described as green in color. The patient denies any history of bowel blockage or cancer diagnoses. Previous colonoscopies have been reported as normal. Past medical history 1. COPD 2. Thyroid condition (on thyroid medication) 3. Recently diagnosed hypertension (started on medication during recent hospitalization) review of systems Pertinent positives as noted in HPI. All other systems were reviewed and are negative Gastrointestinal: Positive for abdominal pain, bloating, vomiting (green in color), and inability to eat. Normal bowel movements but no gas passage. Denies diarrhea. Respiratory: Recent history of COPD and pneumonia, current status improved. Cardiovascular: Recently diagnosed hypertension. Endocrine: History of thyroid condition. Constitutional: Difficulty putting on shoes due to abdominal pain. on exam Constitutional: No acute distress, conversant, pleasant Eyes: Anicteric sclerae, moist conjunctiva, Pupils equal round reactive to light ENMT: NC/AT Oropharynx clear, NG tube in place Lungs: Clear to auscultation Clear to percussion Normal respiratory effort, no accessory muscle use Cardiovascular: Heart regular in rate and rhythm, No murmurs, gallops, or rubs No peripheral edema Abdominal: Distended abdomen Nontender, no guarding, rebound or rigidity Abdomen moving with respiration Normoactive bowel sounds Extremities: No digital cyanosis No clubbing Pedal pulses intact and symmetrical Radial pulses intact and symmetrical No calf tenderness Psychiatric: Alert and oriented to person, place and time Appropriate affect fair judgement Neuro Muscles Strength 5/5 in all 4 extremities Sensation to light touch grossly present throughout Cranial nerves II-XII grossly intact Past Medical History Past Medical History: Diabetes Mellitus, Hypertension, Thyroid Disorder Additional Past Medical History / Comment(s): RSV-8 day hospitalization, History of Any Multi-Drug Resistant Organisms: None Reported Past Surgical History: Orthopedic Surgery Additional Past Surgical History / Comment(s): Cateract sx, shoulder operation 30 years ago, foot operation 35 years ago Past Anesthesia/Blood Transfusion Reactions: No Reported Reaction Past Psychological History: No Psychological Hx Reported Smoking Status: Never smoker Past Alcohol Use History: Rare Past Drug Use History: Marijuana - Past Family History Mother Additional Family Medical History / Comment(s): Lived to be 91, never took any medications. Had Alzheimers last 10 years of life. Father Additional Family Medical History / Comment(s): Lived to be 76, had PTSD from WWII, had a "bad heart" and didn't take care of himself. Medications and Allergies Home Medications Medication Instructions Recorded Confirmed Type Albuterol Nebulized [Ventolin 1.25 mg INHALATION RT-BID 12/06/24 12/11/24 History Nebulized (Accuneb)] Amoxic-Pot Clav 875-125Mg 1 tab PO BID 12/06/24 12/11/24 History [Augmentin 875-125] Budesonide/Formoterol Fumarate 2 puff INHALATION RT-BID 12/06/24 12/11/24 History [Symbicort 160-4.5 Mcg Inhaler] Ipratropium Nebulized [Atrovent 0.5 mg INHALATION RT-BID 12/06/24 12/11/24 History Nebulized 0.2 MG/ML] Levothyroxine Sodium [Synthroid] 175 mcg PO DAILY 12/06/24 12/11/24 History metFORMIN HCL [Glucophage] 500 mg PO BID 30 Days #60 tab 12/08/24 12/11/24 Rx predniSONE See Taper PO DIRECTED 12 Days 12/08/24 12/11/24 Rx #30 tab Losartan-Hctz 50-12.5 mg [Hyzaar 1 tab PO DAILY 12/11/24 12/11/24 History 50-12.5] Allergies Allergy/AdvReac Type Severity Reaction Status Date / Time metal Allergy Rash/Hives Uncoded 12/11/24 19:50 Physical Exam Vitals: Vital Signs Temp Pulse Resp BP Pulse Ox 12/11/24 20:59 72 18 126/68 94 L 12/11/24 18:00 82 18 137/78 92 L 12/11/24 17:15 58 L 17 105/53 97 12/11/24 16:00 97.3 F L 72 18 92/55 94 L Intake and Output 12/11/24 12/11/24 12/11/24 06:59 14:59 22:59 Other: Weight 95.254 kg Results CBC & Chem 7: 12/11/24 17:11 12/11/24 17:11 Labs: Abnormal Lab Results - Last 24 Hours (Table) 12/11/24 12/11/24 12/11/24 Range/Units 17:11 17:11 17:11 WBC 18.21 H (4.50-10.00) 10*3/uL RBC 5.83 H (4.40-5.60) 10*6/uL Hct 50.2 H (39.6-50.0) % MPV 8.9 L (9.5-12.2) fL Immature Gran # 0.25 H (0.00-0.04) 10*3/uL Neutrophils # 12.60 H (1.80-7.70) 10*3/uL Monocytes # 1.72 H (0.20-1.00) 10*3/uL Sodium 136 L (137-145) mmol/L Chloride 96 L (98-107) mmol/L BUN 50 H (9-20) mg/dL Creatinine 1.69 H (0.66-1.25) mg/dL Glucose 173 H (74-99) mg/dL Plasma Lactic Acid Bry 3.0 H* (0.7-2.0) mmol/L Calcium 10.7 H (8.4-10.2) mg/dL Total Bilirubin 1.4 H (0.2-1.3) mg/dL Assessment and Plan Assessment: 69-year-old male with COPD recently admitted and discharged after being treated for COPD and community-acquired pneumonia I discussed case with ED doctor and accepted the admission for small bowel obstruction symptomatic with anticipated length of stay more than 2 midnights Patient presents with symptoms suggestive of a bowel obstruction, including abdominal pain, bloating, vomiting, and inability to eat. The patient's recent hospitalization for COPD and pneumonia, Differential diagnoses: 1. Small bowel obstruction 2. AMANDA Elevated BUN 50 creatinine 1.69 Elevated lactic acid 3 3. Hypercalcemia Mild with calcium 10.7 Continue with IV fluid hydration 4. COPD Compensated Continue with home inhalers 5. Hypothyroid Resume home medications Plan: 1. NPO (nothing by mouth) status to allow bowel rest 2. IV fluid administration for hydration and electrolyte management 3. Nasogastric tube placement for stomach decompression (pending X-ray confirmation) 4. Conservative management for 1-2 days to see if symptoms improve 5. Surgical consultation scheduled for tomorrow to evaluate need for surgical intervention if conservative management fails 6. Monitor symptoms closely, particularly for worsening abdominal pain or distension 7. Review medication list and consider adjusting or holding medications that may be contributing to symptoms CT scan of the abdomen confirms small bowel obstruction with transition point Follow-up: 1. Surgical evaluation tomorrow 2. Reassess NPO status and potential for oral intake based on symptom improvement Blood work showing white count 18 most likely secondary to recent use of steroid Hemoglobin 16.9 Sodium 136 potassium 5.1 Full code DVT prophylaxis heparin 5000 units SQ 3 times daily
[2024-12-12] MEDS: LEVOTHYROXINE 100 MCG TAB PO SCH (06:21)
[2024-12-12] MEDS: LEVOTHYROXINE 75 MCG TAB PO SCH (06:21)
[2024-12-12] MEDS: MORPHINE SULFATE 4 MG/ML SYRINGE IV PRN (06:29)
[2024-12-12 06:47] LABS: Appearance,Urine Clear (Clear); Bilirubin,Urine Negative (Negative); Blood,Urine Negative (Negative); Color,Urine Light Yellow; Glucose,Urine (UA) Negative (Negative); Ketones,Urine Negative (Negative); Leukocyte Esterase,Urine Negative (Negative); Nitrite,Urine Negative (Negative); Protein,Urine Trace (Negative); Specific Gravity,Urine 1.018 (1.001-1.035); Urobilinogen,Urine <2.0 mg/dL (<2.0)
[2024-12-12] MEDS: IPRATROPIUM 0.5 MG/2.5 ML NEBU INHALATION SCH (09:57)
[2024-12-12] MEDS: ALBUTEROL NEBULIZED 1.25 MG/3 ML INHALATION SCH (09:57)
[2024-12-12] MEDS: SYMBICORT 160-4.5 MCG INHALER INHALATION SCH (09:58)
[2024-12-12 11:12] LABS: HGB 15.8 g/dL (13.0-17.0); MCHC 32.2 g/dL (32.0-37.0); MCV 89.9 fL (80.0-97.0); Mean Platelet Volume 8.5 fL (9.5-12.2); Platelet Count 305 10*3/uL (140-440); RBC 5.45 10*6/uL (4.40-5.60); RDW 13.1 % (11.5-14.5); WBC 13.95 10*3/uL (4.50-10.00)
[2024-12-12 11:27] LABS: African American GFR (CKD) 78 (>60 ml/min/1.73 sqM); Anion Gap 8 mmol/L; Blood Urea Nitrogen 48 mg/dL (9-20); Calcium 9.5 mg/dL (8.4-10.2); Carbon Dioxide 33 mmol/L (22-30); Chloride 98 mmol/L (98-107); Glucose 101 mg/dL (74-99); Magnesium 2.3 mg/dL (1.6-2.3); Non-African American GFR(CKD) 67 (>60 ml/min/1.73 sqM); Potassium 4.7 mmol/L (3.5-5.1); Sodium 139 mmol/L (137-145)
--- NOTE | 2024-12-12 11:51 | XR ---
EXAMINATION TYPE: XR abdomen 2V DATE OF EXAM: 12/12/2024 11:31 AM COMPARISON: CT 12/11/2024 CLINICAL INDICATION: Male, 69 years old with history of follow up on [facility], TECHNIQUE: XR abdomen 2V view(s) obtained. FINDINGS: There is a normal bowel gas pattern. Fecal debris is within the ascending and transverse colon. Some debris is within the descending colon. No mass effect is evident. No suspicious dilated small bowel l oops evident. Psoas margins are normal. No organomegaly is present. Nasogastric tube tip is within the proximal left upper quadrant abdomen. IMPRESSION: 1. Mild fecal retention. [facility], , 12/12/2024 11:48 AM
--- NOTE | 2024-12-12 13:22 | P.GSCN ---
History of Present Illness Consult date: 12/12/24 History of present illness: CHIEF COMPLAINT: Abdominal pain HISTORY OF PRESENT ILLNESS: This is a 69-year-old male who had recent hospitalization last week for pneumonia and COPD. Patient reports that he was just discharged this past . Even last week he had noted some right sided abdominal pain and cramping. Thursday after his discharge he started having nausea and vomiting which continued through Thursday. He came into the ER for further evaluation and was found to have evidence of a small bowel obstruction. NG tube was placed in the ER. Patient reports there was some output from the NG tube. He reports that his abdominal pain has resolved. He is passing a small amount of flatus. And he denies any nausea. His last bowel movement was yesterday morning. He reports that he has been having stools. No prior history of bowel obstruction. No prior history of abdominal surgery and reports his last colonoscopy was 15 years ago. Patient is feeling better since admission. He would like the NG tube discontinued. Surgical service consulted for small bowel obstruction. PAST MEDICAL HISTORY: See below PAST SURGICAL HISTORY: See below MEDICATIONS: See below ALLERGIES: See below SOCIAL HISTORY: No illicit drug use. REVIEW OF SYSTEMS: CONSTITUTIONAL: Denies fever or chills. HEENT: Denies blurred vision, vision changes, or eye pain. Denies hemoptysis CARDIOVASCULAR: Denies chest pain or pressure. RESPIRATORY: No shortness of breath. GASTROINTESTINAL: See HPI for pertinent findings HEMATOLOGIC: Denies bleeding disorders. GENITOURINARY: Denies any blood in urine or increased urinary frequency. SKIN: Denies pruitis. Denies rash. PHYSICAL EXAM: VITAL SIGNS: Reviewed GENERAL: Well-developed in no acute distress. HEENT: No sclera icterus. Extraocular movements grossly intact. Moist buccal mucosa. Head is atraumatic, normocephalic. No nasal drainage. ABDOMEN: Soft. Nondistended. Nontender NEUROLOGIC: Alert and oriented. Cranial nerves II through XII grossly intact. LABORATORY DATA: WBC is down from 18.2-13.9 Hgb 15.8 platelets 305 Sodium 139 potassium 4.7 creatinine 1.12 Lactic acid 3.0-1.4 IMAGING: CT scan abdomen pelvis reported dilated small bowel loops in the left hemiabdomen with focal transition point in fecalization of small bowel contents. Findings are compatible with small bowel obstruction. No evidence of free air or pneumoperitoneum to suggest perforation at this time. ASSESSMENT: 1. Small bowel obstruction improving PLAN: - Patient having flatus and abdominal pain resolved. Abdominal x-ray ordered this morning that reports mild fecal retention - Discontinue NG tube - Start clear liquid diet - Encourage patient to ambulate - Add MiraLAX for constipation Physician Change Management Administrator note has been reviewed by physician. Signing provider agrees with the documented findings, assessment, and plan of care. Attestation Patient seen and examined at bedside. Present with chief complaint of abdominal pain. He states abdominal pain has completely resolved. States he has had some flatus episodes. No bowel movement yet. Abdominal x-ray ordered showing normal small bowel loops with some fecal retention. We will plan for discontinuing nasogastric tube and start clear liquid diet. We will consider bowel regimen as well. Patient agreeable with this plan. Laura Barry DO Past Medical History Past Medical History: Diabetes Mellitus, Hypertension, Thyroid Disorder Additional Past Medical History / Comment(s): RSV-8 day hospitalization, History of Any Multi-Drug Resistant Organisms: None Reported Past Surgical History: Orthopedic Surgery Additional Past Surgical History / Comment(s): Cateract sx, shoulder operation 30 years ago, foot operation 35 years ago Past Anesthesia/Blood Transfusion Reactions: No Reported Reaction Past Psychological History: No Psychological Hx Reported Additional Psychological History / Comment(s): Claustrophobic Smoking Status: Never smoker Past Alcohol Use History: Rare Past Drug Use History: Marijuana Additional Drug Use History / Comment(s): Rarely uses THC gummies - Past Family History Mother Additional Family Medical History / Comment(s): Lived to be 91, never took any medications. Had Alzheimers last 10 years of life. Father Additional Family Medical History / Comment(s): Lived to be 76, had PTSD from WWII, had a "bad heart" and didn't take care of himself. Medications and Allergies Home Medications Medication Instructions Recorded Confirmed Type Albuterol Nebulized [Ventolin 1.25 mg INHALATION RT-BID 12/06/24 12/11/24 History Nebulized (Accuneb)] Amoxic-Pot Clav 875-125Mg 1 tab PO BID 12/06/24 12/11/24 History [Augmentin 875-125] Budesonide/Formoterol Fumarate 2 puff INHALATION RT-BID 12/06/24 12/11/24 History [Symbicort 160-4.5 Mcg Inhaler] Ipratropium Nebulized [Atrovent 0.5 mg INHALATION RT-BID 12/06/24 12/11/24 History Nebulized 0.2 MG/ML] Levothyroxine Sodium [Synthroid] 175 mcg PO DAILY 12/06/24 12/11/24 History metFORMIN HCL [Glucophage] 500 mg PO BID 30 Days #60 tab 12/08/24 12/11/24 Rx predniSONE See Taper PO DIRECTED 12 Days 12/08/24 12/11/24 Rx #30 tab Losartan-Hctz 50-12.5 mg [Hyzaar 1 tab PO DAILY 12/11/24 12/11/24 History 50-12.5] Allergies Allergy/AdvReac Type Severity Reaction Status Date / Time metal Allergy Rash/Hives Uncoded 12/11/24 19:50 Surgical - Exam Osteopathic Statement: *. No significant issues noted on an osteopathic structural exam other than those noted in the History and Physical/Consult. Vital Signs Temp Pulse Resp BP Pulse Ox 97.3 F L 72 18 92/55 94 L 12/11/24 16:00 12/11/24 16:00 12/11/24 16:00 12/11/24 16:00 12/11/24 16:00 Results - Labs 12/12/24 10:49 12/12/24 10:49 Abnormal Lab Results - Last 24 Hours (Table) 12/11/24 12/11/24 12/11/24 Range/Units 17:11 17:11 17:11 WBC 18.21 H (4.50-10.00) 10*3/uL RBC 5.83 H (4.40-5.60) 10*6/uL Hct 50.2 H (39.6-50.0) % MPV 8.9 L (9.5-12.2) fL Immature Gran # 0.25 H (0.00-0.04) 10*3/uL Neutrophils # 12.60 H (1.80-7.70) 10*3/uL Monocytes # 1.72 H (0.20-1.00) 10*3/uL Sodium 136 L (137-145) mmol/L Chloride 96 L (98-107) mmol/L Carbon Dioxide (22-30) mmol/L BUN 50 H (9-20) mg/dL Creatinine 1.69 H (0.66-1.25) mg/dL Glucose 173 H (74-99) mg/dL Plasma Lactic Acid Bry 3.0 H* (0.7-2.0) mmol/L Calcium 10.7 H (8.4-10.2) mg/dL Total Bilirubin 1.4 H (0.2-1.3) mg/dL Urine Protein (Negative) 12/12/24 12/12/24 12/12/24 Range/Units 06:33 10:49 10:49 WBC 13.95 H (4.50-10.00) 10*3/uL RBC (4.40-5.60) 10*6/uL Hct (39.6-50.0) % MPV 8.5 L (9.5-12.2) fL Immature Gran # (0.00-0.04) 10*3/uL Neutrophils # (1.80-7.70) 10*3/uL Monocytes # (0.20-1.00) 10*3/uL Sodium (137-145) mmol/L Chloride (98-107) mmol/L Carbon Dioxide 33 H (22-30) mmol/L BUN 48 H (9-20) mg/dL Creatinine (0.66-1.25) mg/dL Glucose 101 H (74-99) mg/dL Plasma Lactic Acid Bry (0.7-2.0) mmol/L Calcium (8.4-10.2) mg/dL Total Bilirubin (0.2-1.3) mg/dL Urine Protein Trace H (Negative) Diabetes panel 12/11/24 12/12/24 Range/Units 17:11 10:49 Sodium 136 L 139 (137-145) mmol/L Potassium 5.1 4.7 (3.5-5.1) mmol/L Chloride 96 L 98 (98-107) mmol/L Carbon Dioxide 24 33 H (22-30) mmol/L BUN 50 H 48 H (9-20) mg/dL Creatinine 1.69 H 1.12 (0.66-1.25) mg/dL Glucose 173 H 101 H (74-99) mg/dL Calcium 10.7 H 9.5 (8.4-10.2) mg/dL AST 30 (17-59) U/L ALT 36 (4-49) U/L Alkaline Phosphatase 67 (38-126) U/L Total Protein 8.0 (6.3-8.2) g/dL Albumin 4.9 (3.5-5.0) g/dL Calcium panel 12/11/24 12/12/24 Range/Units 17:11 10:49 Calcium 10.7 H 9.5 (8.4-10.2) mg/dL Albumin 4.9 (3.5-5.0) g/dL Pituitary panel 12/11/24 12/12/24 Range/Units 17:11 10:49 Sodium 136 L 139 (137-145) mmol/L Potassium 5.1 4.7 (3.5-5.1) mmol/L Chloride 96 L 98 (98-107) mmol/L Carbon Dioxide 24 33 H (22-30) mmol/L BUN 50 H 48 H (9-20) mg/dL Creatinine 1.69 H 1.12 (0.66-1.25) mg/dL Glucose 173 H 101 H (74-99) mg/dL Calcium 10.7 H 9.5 (8.4-10.2) mg/dL Adrenal panel 12/11/24 12/12/24 Range/Units 17:11 10:49 Sodium 136 L 139 (137-145) mmol/L Potassium 5.1 4.7 (3.5-5.1) mmol/L Chloride 96 L 98 (98-107) mmol/L Carbon Dioxide 24 33 H (22-30) mmol/L BUN 50 H 48 H (9-20) mg/dL Creatinine 1.69 H 1.12 (0.66-1.25) mg/dL Glucose 173 H 101 H (74-99) mg/dL Calcium 10.7 H 9.5 (8.4-10.2) mg/dL Total Bilirubin 1.4 H (0.2-1.3) mg/dL AST 30 (17-59) U/L ALT 36 (4-49) U/L Alkaline Phosphatase 67 (38-126) U/L Total Protein 8.0 (6.3-8.2) g/dL Albumin 4.9 (3.5-5.0) g/dL
[2024-12-12] MEDS: HEPARIN SODIUM,PORCINE 5,000 UNIT/ML 1 ML VIAL SQ SCH (13:31)
[2024-12-12] MEDS: PANTOPRAZOLE 40 MG/10 ML VIAL IV SCH (13:31)
[2024-12-12] MEDS ORDERED: DEXTROSE 50% SYRINGE 50 ML IVP PRN ×2 (14:07)
--- NOTE | 2024-12-12 14:14 | P.PN ---
Subjective Progress Note Date: 12/12/24 69 year old M with PMH of HTN, Hypothyroidism, COPD with recent hospitalization for PNA presents to the ED for abdominal pain, nausea and vomiting. In the ED he underwent extensive evaluation. BP 92/55, HR 72, T 97.3F, RR 18, 94% on RA. Labs significant for WBC 18.2, RBC 5.83, Hct 50.2, Na 136, Cl 96, BUN 50, Cr 1.69, glu 173, Lactic acdi 3-1.4, Ca 10.7, T. Bili 1.4. Lipase 89. UA trace protein. Acetone neg. CTAP confirmed SBO. EKG sinus rhythm. Patient was admitted for further workup and management. NT tube inserted. Surgery consulted. 12/12 Patient was seen and examined. He reports discomfort with NG tube which has not been draining anything. No nausea or vomiting. No abdominal pain. Having b owel movements. KUB shows fecal retention. CBC and BMP significant for WBC 13.95, bicarb 33, BUN 48, glu 101. Mag 2.3. General: non toxic, no distress, appears at stated age Derm: warm, dry Head: atraumatic, normocephalic, symmetric, NG tube intact Eyes: EOMI, no lid lag, anicteric sclera Mouth: no lip lesion, mucus membranes moist Cardiovascular: S1S2 reg, no murmur Lungs: Decreased BS bilateral, no rhonchi, no rales , no accessory muscle use Abd: Soft. Non tender. Sluggish BS Ext: no gross muscle atrophy, no edema, no contractures Neuro: no focal neuro deficits Psych: Alert, oriented, appropriate affect Based on my assessment of this patient, this patient meets a high complexity level of care. SBO: DC Rocephin and Flagyl. Zofran 4 mg IV TID PRN N/V. Morphine 4 mg IV Q4H PRN pain. DC NG tube and start CLD per Surgery recommendations. Surgery on board. Leukocytosis likely due to above. No signs of active infection. DC antibiotics as above. Monitor fever profile. Fecal retention: Miralax 17g PO QD. Prerenal azotemia: NS at 130 cc/hr. Recent hospitalization for PNA: Augmentin 875-125 mg PO BID. COPD not in acute exacerbation: Albuterol neb PRN SOB/wheezing. Ipratropium 0.5 INH BID. Symbicort 2 INH BID. Hypertension: Now hypotensive. Hold Losartan-HCTZ. DM: ISS + Accuchecks ACHS along with hypoglycemic precautions. Hypothyroid: Synthroid 175 mcg PO QD. Resolved: AMANDA. Lactic acidosis CODE STATUS: FULL CODE DVT Prophylaxis: Heparin SQ GI Prophylaxis: Protonix IV Designated medical POA if patient is not able to make medical decisions for themselves: I have reviewed the following websphere commerce consultant notes: Surgery. I have reviewed the results of the following tests: CBC, BMP, Mag. I have ordered the following tests: CBC, Mag and BMP in the AM. I have discussed the care of this patient with the following independent historian: I have independently interpreted the following test below: KUB. I have discussed the management of this patient with the following physician: Objective - Vital Signs Vital signs: Vital Signs Temp 97.9 F 12/12/24 08:00 Pulse 88 12/12/24 10:15 Resp 18 12/12/24 10:15 BP 114/65 12/12/24 12:02 Pulse Ox 95 12/12/24 08:00 FiO2 Intake & Output 12/11/24 12/12/24 12/12/24 18:59 06:59 18:59 Weight 95.254 kg 95.254 kg - Labs CBC & Chem 7: 12/12/24 10:49 12/12/24 10:49 Labs: Abnormal Lab Results - Last 24 Hours (Table) 12/11/24 12/11/24 12/11/24 Range/Units 17:11 17:11 17:11 WBC 18.21 H (4.50-10.00) 10*3/uL RBC 5.83 H (4.40-5.60) 10*6/uL Hct 50.2 H (39.6-50.0) % MPV 8.9 L (9.5-12.2) fL Immature Gran # 0.25 H (0.00-0.04) 10*3/uL Neutrophils # 12.60 H (1.80-7.70) 10*3/uL Monocytes # 1.72 H (0.20-1.00) 10*3/uL Sodium 136 L (137-145) mmol/L Chloride 96 L (98-107) mmol/L Carbon Dioxide (22-30) mmol/L BUN 50 H (9-20) mg/dL Creatinine 1.69 H (0.66-1.25) mg/dL Glucose 173 H (74-99) mg/dL Plasma Lactic Acid Bry 3.0 H* (0.7-2.0) mmol/L Calcium 10.7 H (8.4-10.2) mg/dL Total Bilirubin 1.4 H (0.2-1.3) mg/dL Urine Protein (Negative) 12/12/24 12/12/24 12/12/24 Range/Units 06:33 10:49 10:49 WBC 13.95 H (4.50-10.00) 10*3/uL RBC (4.40-5.60) 10*6/uL Hct (39.6-50.0) % MPV 8.5 L (9.5-12.2) fL Immature Gran # (0.00-0.04) 10*3/uL Neutrophils # (1.80-7.70) 10*3/uL Monocytes # (0.20-1.00) 10*3/uL Sodium (137-145) mmol/L Chloride (98-107) mmol/L Carbon Dioxide 33 H (22-30) mmol/L BUN 48 H (9-20) mg/dL Creatinine (0.66-1.25) mg/dL Glucose 101 H (74-99) mg/dL Plasma Lactic Acid Bry (0.7-2.0) mmol/L Calcium (8.4-10.2) mg/dL Total Bilirubin (0.2-1.3) mg/dL Urine Protein Trace H (Negative)
[2024-12-12 17:14] LABS: Glucose,Whole Blood 143 mg/dL (70-110)
[2024-12-12] MEDS: INSULIN LISPRO (HumaLOG) 100 UNIT/ML 10 mL VL SQ SCH (17:30)
[2024-12-12] MEDS: polyethylene glycoL 3350 17 GM POWD.PACK PO SCH (17:53)
[2024-12-12 20:22] LABS: Glucose,Whole Blood 97 mg/dL (70-110)
[2024-12-12] MEDS: AMOXIC-POT CLAV 875-125MG 1 EACH TAB PO SCH (21:30)
[2024-12-13 06:01] LABS: Glucose,Whole Blood 98 mg/dL (70-110)
[2024-12-13 06:49] LABS: HCT 45.6 % (39.6-50.0); HGB 14.7 g/dL (13.0-17.0); MCH 28.2 pg (27.0-32.0); MCHC 32.2 g/dL (32.0-37.0); MCV 87.5 fL (80.0-97.0); Mean Platelet Volume 8.3 fL (9.5-12.2); Platelet Count 236 10*3/uL (140-440); RBC 5.21 10*6/uL (4.40-5.60); RDW 12.9 % (11.5-14.5); WBC 11.49 10*3/uL (4.50-10.00)
[2024-12-13 07:01] LABS: African American GFR (CKD) >90 (>60 ml/min/1.73 sqM); Anion Gap 5 mmol/L; Blood Urea Nitrogen 30 mg/dL (9-20); Calcium 8.8 mg/dL (8.4-10.2); Carbon Dioxide 32 mmol/L (22-30); Chloride 100 mmol/L (98-107); Glucose 103 mg/dL (74-99); Magnesium 2.2 mg/dL (1.6-2.3); Non-African American GFR(CKD) >90 (>60 ml/min/1.73 sqM); Potassium 4.3 mmol/L (3.5-5.1); Sodium 137 mmol/L (137-145)
--- NOTE | 2024-12-13 11:22 | P.PN ---
Subjective Progress Note Date: 12/13/24 69 year old M with PMH of HTN, Hypothyroidism, COPD with recent hospitalization for PNA presents to the ED for abdominal pain, nausea and vomiting. In the ED he underwent extensive evaluation. BP 92/55, HR 72, T 97.3F, RR 18, 94% on RA. Labs significant for WBC 18.2, RBC 5.83, Hct 50.2, Na 136, Cl 96, BUN 50, Cr 1.69, glu 173, Lactic acdi 3-1.4, Ca 10.7, T. Bili 1.4. Lipase 89. UA trace protein. Acetone neg. CTAP confirmed SBO. EKG sinus rhythm. Patient was admitted for further workup and management. NT tube inserted. Surgery consulted. 12/12 Patient was seen and examined. He reports discomfort with NG tube which has not been draining anything. No nausea or vomiting. No abdominal pain. Having b owel movements. KUB shows fecal retention. CBC and BMP significant for WBC 13.95, bicarb 33, BUN 48, glu 101. Mag 2.3. 12/13 Patient was seen and examined. NG tube discontinued yesterday and started o n CLD. Diet will be advanced to regular today. No nausea or vomiting. No abdominal pain. Passing gas. CBC and BMP significant for WBC 11.49, bicarb 32, BUN 30, glu 103. Mag 2.2. General: non toxic, no distress, appears at stated age Derm: warm, dry Head: atraumatic, normocephalic, symmetric, NG tube intact Eyes: EOMI, no lid lag, anicteric sclera Mouth: no lip lesion, mucus membranes moist Cardiovascular: S1S2 reg, no murmur Lungs: Decreased BS bilateral, no rhonchi, no rales , no accessory muscle use Abd: Soft. Non tender. Sluggish BS Ext: no gross muscle atrophy, no edema, no contractures Neuro: no focal neuro deficits Psych: Alert, oriented, appropriate affect Based on my assessment of this patient, this patient meets a high complexity level of care. SBO: DC Rocephin and Flagyl. Zofran 4 mg IV TID PRN N/V. Morphine 4 mg IV Q4H PRN pain. Advance diet to regular per Surgery recommendations. Surgery on board. Leukocytosis likely due to above. No signs of active infection. DC antibiotics as above. Monitor fever profile. Fecal retention: Miralax 17g PO QD. Prerenal azotemia: Decrease NS from 130 to 75 cc/hr. Recent hospitalization for PNA: Augmentin 875-125 mg PO BID. COPD not in acute exacerbation: Albuterol neb PRN SOB/wheezing. Ipratropium 0.5 INH BID. Symbicort 2 INH BID. Hypertension: Now normotensive. Hold Losartan-HCTZ. DM: ISS + Accuchecks ACHS along with hypoglycemic precautions. Hypothyroid: Synthroid 175 mcg PO QD. Resolved: AMANDA. Lactic acidosis CODE STATUS: FULL CODE DVT Prophylaxis: Heparin SQ GI Prophylaxis: Protonix IV Designated medical POA if patient is not able to make medical decisions for themselves: I have reviewed the following validation consultant notes: Surgery. I have reviewed the results of the following tests: CBC, BMP, Mag. I have ordered the following tests: I have discussed the care of this patient with the following independent histori an: I have independently interpreted the following test below: I have discussed the management of this patient with the following physician: Objective - Vital Signs Vital signs: Vital Signs Temp 97.9 F 12/13/24 08:00 Pulse 87 12/13/24 10:03 Resp 19 12/13/24 08:00 BP 129/68 12/13/24 08:00 Pulse Ox 93 L 12/13/24 08:00 FiO2 Intake & Output 12/12/24 12/13/24 12/13/24 18:59 06:59 18:59 Intake Total 118 Balance 118 Weight 95.254 kg Intake: Oral 118 Other: Voiding Method Toilet # Voids 2 - Labs CBC & Chem 7: 12/13/24 06:18 12/13/24 06:18 Labs: Abnormal Lab Results - Last 24 Hours (Table) 12/12/24 12/12/24 12/13/24 Range/Units 10:49 17:12 06:18 WBC 11.49 H (4.50-10.00) 10*3/uL MPV 8.3 L (9.5-12.2) fL Carbon Dioxide 33 H (22-30) mmol/L BUN 48 H (9-20) mg/dL Glucose 101 H (74-99) mg/dL POC Glucose (mg/dL) 143 H (70-110) mg/dL 06/24/25 Range/Units 06:18 WBC (4.50-10.00) 10*3/uL MPV (9.5-12.2) fL Carbon Dioxide 32 H (22-30) mmol/L BUN 30 H (9-20) mg/dL Glucose 103 H (74-99) mg/dL POC Glucose (mg/dL) (70-110) mg/dL
[2024-12-13 11:52] LABS: Glucose,Whole Blood 118 mg/dL (70-110)
--- NOTE | 2024-12-13 12:27 | P.PN ---
Subjective Progress Note Date: 12/13/24 SURGICAL PROGRESS NOTE CHIEF COMPLAINT: Abdominal pain HISTORY OF PRESENT ILLNESS: Patient reports abdominal pain has resolved. NG tube discontinued yesterday. He is having flatus. Denies any bowel movement. He is tolerating clear liquids. He is requesting more to eat. Abdominal x-ray from yesterday had reported mild fecal retention. WBC is down from 13.9-11.49 PHYSICAL EXAM: VITAL SIGNS: Reviewed. GENERAL: Well-developed in no acute distress. ABDOMEN: Soft. Nondistended. Nontender. NEUROLOGIC: Alert and oriented. Cranial nerves II through XII grossly intact. ASSESSMENT: 1. Partial Small bowel obstruction resolved 2. Constipation PLAN: - Advance diet to regular - Continue MiraLAX for constipation - Encourage patient to ambulate Physician Business Records Manager note has been reviewed by physician. Signing provider agrees with the documented findings, assessment, and plan of care. Attestation Patient seen and examined at bedside. States abdominal pain has completely resolved. Leukocytosis continues to downward trend. Appears that partial small bowel obstruction has resolved. Tolerating diet and having flatus. Will add bowel regimen for constipation. Continue to increase activity. Laura Barry, Objective - Vital Signs Vital signs: Vital Signs Temp 97.9 F 12/13/24 08:00 Pulse 87 12/13/24 10:03 Resp 19 12/13/24 08:00 BP 129/68 12/13/24 08:00 Pulse Ox 93 L 12/13/24 08:00 FiO2 Intake & Output 12/12/24 12/13/24 12/13/24 18:59 06:59 18:59 Intake Total 118 Balance 118 Weight 95.254 kg Intake: Oral 118 Other: Voiding Method Toilet # Voids 2 - Labs CBC & Chem 7: 12/13/24 06:18 12/13/24 06:18 Labs: Abnormal Lab Results - Last 24 Hours (Table) 12/12/24 12/13/24 12/13/24 Range/Units 17:12 06:18 06:18 WBC 11.49 H (4.50-10.00) 10*3/uL MPV 8.3 L (9.5-12.2) fL Carbon Dioxide 32 H (22-30) mmol/L BUN 30 H (9-20) mg/dL Glucose 103 H (74-99) mg/dL POC Glucose (mg/dL) 143 H (70-110) mg/dL 12/13/24 Range/Units 11:51 WBC (4.50-10.00) 10*3/uL MPV (9.5-12.2) fL Carbon Dioxide (22-30) mmol/L BUN (9-20) mg/dL Glucose (74-99) mg/dL POC Glucose (mg/dL) 118 H (70-110) mg/dL
[2024-12-13 17:13] LABS: Glucose,Whole Blood 111 mg/dL (70-110)
[2024-12-13 20:14] LABS: Glucose,Whole Blood 151 mg/dL (70-110)
[2024-12-13] MEDS: MAGNESIUM HYDROXIDE 2,400 MG/30 ML CUP PO PRN (20:36)
[2024-12-14 06:12] LABS: Glucose,Whole Blood 136 mg/dL (70-110)
[2024-12-14 10:12] VITALS: BP 134/68; PULSE 86; RESP 19; TEMP 98.8
--- NOTE | 2024-12-14 11:09 | P.DS ---
Providers Date of admission: 12/11/24 20:21 Expected date of discharge: 12/14/24 Attending physician: Artie Valencia MD Consults: 12/11/24 20:19 Consult Physician Urgent Consulting Provider: Molina Love Consult Reason/Comments: SBO Do you want consulting provider notified?: Yes Primary care physician: Stated None Hospital Course: 69 year old M with PMH of HTN, Hypothyroidism, COPD with recent hospitalization for PNA presents to the ED for abdominal pain, nausea and vomiting. In the ED he underwent extensive evaluation. BP 92/55, HR 72, T 97.3F, RR 18, 94% on RA. Labs significant for WBC 18.2, RBC 5.83, Hct 50.2, Na 136, Cl 96, BUN 50, Cr 1.69, glu 173, Lactic acdi 3-1.4, Ca 10.7, T. Bili 1.4. Lipase 89. UA trace protein. Acetone neg. CTAP confirmed SBO. EKG sinus rhythm. Patient was admitted for further workup and management. NT tube inserted. Surgery consulted. Placed NPO. NG tube discontinued on 12/12. Tolerating CLD advanced to regular diet. 12/14 Patient was seen and examined. Tolerating regular diet well. No nausea or vomiting. No abdominal pain. Had 2 bowel movements. Discharge Plan: Follow up with your PCP within 1-2 days of discharge. General: non toxic, no distress, appears at stated age Derm: warm, dry Head: atraumatic, normocephalic, symmetric Eyes: EOMI, no lid lag, anicteric sclera Mouth: no lip lesion, mucus membranes moist Cardiovascular: S1S2 reg, no murmur Lungs: Decreased BS bilateral, no rhonchi, no rales , no accessory muscle use Ext: no gross muscle atrophy, no edema, no contractures Neuro: no focal neuro deficits Psych: Alert, oriented, appropriate affect Discharge Diagnosis: SBO Leukocytosis likely due to above. No signs of active infection Fecal retention Prerenal azotemia Recent hospitalization for PNA COPD not in acute exacerbation Hypertension DM Hypothyroid Resolved: AMANDA. Lactic acidosis This complex discharge took 35 minutes to complete. Patient Condition at Discharge: Stable Plan - Discharge Summary Discharge Rx Participant: Yes New Discharge Prescriptions: New Acetaminophen Tab [Tylenol] 650 mg PO Q6HR PRN tab PRN Reason: Mild Pain Or Fever > 100.5 Continue Amoxic-Pot Clav 875-125Mg [Augmentin 875-125] 1 tab PO BID Budesonide/Formoterol Fumarate [Symbicort 160-4.5 Mcg Inhaler] 2 puff INHALATION RT-BID Levothyroxine Sodium [Synthroid] 175 mcg PO DAILY Ipratropium Nebulized [Atrovent Nebulized 0.2 MG/ML] 0.5 mg INHALATION RT-BID Albuterol Nebulized [Ventolin Nebulized (Accuneb)] 1.25 mg INHALATION RT-BID metFORMIN HCL [Glucophage] 500 mg PO BID 30 Days #60 tab predniSONE See Taper PO DIRECTED 12 Days #30 tab Losartan-Hctz 50-12.5 mg [Hyzaar 50-12.5] 1 tab PO DAILY Discharge Medication List Albuterol Nebulized [Ventolin Nebulized (Accuneb)] 1.25 mg INHALATION RT-BID 12/06/24 [History] Amoxic-Pot Clav 875-125Mg [Augmentin 875-125] 1 tab PO BID 12/06/24 [History] Budesonide/Formoterol Fumarate [Symbicort 160-4.5 Mcg Inhaler] 2 puff INHALATION RT-BID 12/06/24 [History] Ipratropium Nebulized [Atrovent Nebulized 0.2 MG/ML] 0.5 mg INHALATION RT-BID 12/06/24 [History] Levothyroxine Sodium [Synthroid] 175 mcg PO DAILY 12/06/24 [History] metFORMIN HCL [Glucophage] 500 mg PO BID 30 Days #60 tab 12/08/24 [Rx] predniSONE See Taper PO DIRECTED 12 Days #30 tab 12/08/24 [Rx] Losartan-Hctz 50-12.5 mg [Hyzaar 50-12.5] 1 tab PO DAILY 12/11/24 [History] Acetaminophen Tab [Tylenol] 650 mg PO Q6HR PRN tab 12/14/24 [Rx] Follow up Appointment(s)/Referral(s): None,Stated [Primary Care Provider] - 1-2 days Discharge Disposition: HOME SELF-CARE
[2024-12-14] MEDS: IPRATROPIUM-ALBUTEROL 3 ML NEB INHALATION SCH (11:29)
[2024-12-14 11:33] LABS: Glucose,Whole Blood 96 mg/dL (70-110)
--- NOTE | 2024-12-14 12:21 | P.PN ---
Subjective Progress Note Date: 12/14/24 SURGICAL PROGRESS NOTE CHIEF COMPLAINT: Abdominal pain HISTORY OF PRESENT ILLNESS: Patient had a bowel movement. Denies any abdominal pain. He is tolerating diet. Afebrile. PHYSICAL EXAM: VITAL SIGNS: Reviewed. GENERAL: Well-developed in no acute distress. ABDOMEN: Soft. Nondistended. Nontender. NEUROLOGIC: Alert and oriented. Cranial nerves II through XII grossly intact. ASSESSMENT: 1. Partial Small bowel obstruction resolved 2. Constipation improved PLAN: -Patient can be discharged from surgical standpoint -Recommend good bowel regimen with metamucil or Benefiber OTC Physician Barrel Reamer note has been reviewed by physician. Signing provider agrees with the documented findings, assessment, and plan of care. Patient tolerating diet and having bowel function. Ok for discharge Molina Love DO [facility] [phone] Objective - Vital Signs Vital signs: Vital Signs Temp 98.8 F 12/14/24 08:00 Pulse 86 12/14/24 08:00 Resp 19 12/14/24 08:00 BP 134/68 12/14/24 08:00 Pulse Ox 90 L 12/14/24 08:00 FiO2 Intake & Output 12/13/24 12/14/24 12/14/24 18:59 06:59 18:59 Intake Total 200 Balance 200 Intake: Oral 200 Other: Voiding Method Toilet # Voids 3 2 # Bowel Movements 1 - Labs CBC & Chem 7: 12/13/24 06:18 12/13/24 06:18 Labs: Abnormal Lab Results - Last 24 Hours (Table) 12/13/24 12/13/24 12/14/24 Range/Units 17:12 20:12 06:09 POC Glucose (mg/dL) 111 H 151 H 136 H (70-110) mg/dL Microbiology - Last 24 Hours (Table) 12/11/24 20:49 Blood Culture - Preliminary Blood
== END 2024-12-14 13:00 | disposition home or self-care (01) | DRG 389 ==
LOC: EC 15:40 → 4SSUR 20:21 → 1SOBS 12-12 03:17
PROVIDERS: ADMIT Internal Medicine; ATTEND Internal Medicine
DX: K56.600 Partial intestinal obstruction, unspecified as to cause (principal); E87.20 Acidosis, unspecified; J44.9 Chronic obstructive pulmonary disease, unspecified; E11.9 Type 2 diabetes mellitus without complications; E03.9 Hypothyroidism, unspecified; I10 Essential (primary) hypertension; N17.9 Acute kidney failure, unspecified; K59.00 Constipation, unspecified; Z79.51 Long term (current) use of inhaled steroids; Z79.84 Long term (current) use of oral hypoglycemic drugs; Z79.890 Hormone replacement therapy
CPT/HCPCS: 31500; 36415; 74019; 74176; 80048; 80053; 81003; 82009; 83605; 83690; 83735; 85025; 85027; 87040; 93005; 94640; 96361; 96365; 96366; 96367; 96372; 96375; 99285